=== PATIENT | female | born 1940 | race Caucasian/White ===

== ENCOUNTER 2017-04-29 10:05 | Outpatient (CLI) ==
[2017-04-29 12:19] VITALS: BMI 46.2
== END 2017-04-29 10:06 | disposition home or self-care (01) ==
LOC: DIETCN 10:05
PROVIDERS: ATTEND Internal Medicine
DX: E66.9 Obesity, unspecified (principal)

== ENCOUNTER 2017-06-05 13:04 | Outpatient (CLI) ==
[2012-08-29 07:05] VITALS: TEMP 97.6
--- NOTE | 2017-06-06 11:53 | MAMMO ---
EXAM: Bilateral digital screening mammogram (2-D and 3-D) History: Screening Comparison: Bilateral mammogram 07/25/2015 Findings: MLO and CC views of bilateral breasts demonstrate scattered fibroglandular breast parenchy ma. CAD was reviewed by the radiologist. Tomosynthesis was performed. There are no dominant masses , no suspicious microcalcifications and no architectural distortions Impression: Stable negative mammogram. Recommend followup routine screening mammography in 1 year. BIRADS 1
== END 2017-06-05 13:05 | disposition home or self-care (01) ==
LOC: RAD 13:04
PROVIDERS: ATTEND Internal Medicine
DX: Z12.31 Encounter for screening mammogram for malignant neoplasm of breast (principal)
CPT/HCPCS: 77067

== ENCOUNTER 2017-07-09 12:57 | Outpatient (CLI) | payer OTHER ==
[2012-08-29 07:05] VITALS: TEMP 97.6
--- NOTE | 2017-07-09 13:23 | DI ---
EXAM: Left shoulder three view HISTORY: Fall COMPARISON: 11/14/2013 FINDINGS: No fracture or dislocation. Mild osteoarthritis acromioclavicular and glenohumeral joints No focal soft tissue abnormality. Visualized portion of the chest is normal. IMPERSSION: 1. No fracture or dislocation. 2. Mild osteoarthritis
== END 2017-07-09 12:58 | disposition home or self-care (01) ==
LOC: RAD 12:57
PROVIDERS: ATTEND Emergency Medicine
DX: S49.92XA Unspecified injury of left shoulder and upper arm, initial encounter (principal); W19.XXXA Unspecified fall, initial encounter

== ENCOUNTER 2018-02-11 08:37 | Outpatient (CLI) ==
[2012-08-29 07:05] VITALS: TEMP 97.6
--- NOTE | 2018-02-11 09:28 | MAMMO ---
EXAM: Left digital diagnostic mammogram (2-D and 3-D) History: Left breast pain and palpable abnormality. Comparison: Bilateral mammogram 06/05/2017 Findings: MLO and CC views of bilateral breasts demonstrate scattered fibroglandular breast parenchy ma. CAD was reviewed by the radiologist. Tomosynthesis was performed. There are no dominant masses , no suspicious microcalcifications and no architectural distortions Impression: Although no mammographic abnormalities are identified to correlate with the left breast pain and palpable area, recommend further evaluation with left breast ultrasound. BIRADS 0
--- NOTE | 2018-02-11 09:38 | US ---
EXAM: Left breast ultrasound. History: Left breast pain. Comparison: Left diagnostic mammogram 02/11/2018 Technique: Multiple sonographic images through the left breast were obtained. Color duplex Doppler was used to interrogate vascular flow. Findings: No masses, cysts or fluid collections identified. Impression: No sonographic abnormalities. Recommend return to routine screening mammography schedule . BIRADS 2
== END 2018-02-11 08:38 | disposition home or self-care (01) ==
LOC: RAD 08:37
PROVIDERS: ATTEND Internal Medicine
DX: N64.4 Mastodynia (principal); E03.9 Hypothyroidism, unspecified
CPT/HCPCS: 36415; 84443

== ENCOUNTER 2021-08-18 13:26 | Inpatient (IN) ==
[2021-08-18] MEDS ORDERED: CATAPRES PO ONE (13:51)
--- NOTE | 2021-08-18 13:54 | ED.PDOC ---
General ED Provider: Dr. GRACIELA PERALES MD Chief Complaint: Arrhythmia Stated Complaint: mild palpitations today at home, no syncope, no chest pain, resolved now, not short of breath, no fever, no NV Time Seen by Provider: 08/18/21 13:41 Mode of Arrival: Wheelchair Information Source: Patient Primary Care Provider: SEAN PUGA Nursing and Triage Documentation Reviewed and Agree: Yes Does patient meet sepsis criteria?: No System Inflammatory Response Syndrome: Not Applicable Sepsis Protocol: For patient's 13 years and over: Temp is 96.8 and below OR 101 and greater Pulse >90 BPM Resp >20/minute Acutely Altered Mental Status Are patient's symptoms suggestive of a new infection, such as: -Pneumonia -Skin, Soft Tissue -Endocarditis -UTI -Bone, Joint Infection -Implantable Device -Acute Abdominal Infection -Wound Infection -Meningitis -Blood Stream Catheter Infection -Unknown Review of Systems Review Of Systems Constitutional: Denies Fever or Malaise Eyes: Denies Vision change Ears, Nose, Mouth, Throat: Denies Throat pain Respiratory: Denies Short of air Cardiac: Reports Palpitations; Denies Chest pain or Lightheadedness GI: Denies Abdominal pain or Vomiting : Denies Flank pain Musculoskeletal: Denies Back pain or Neck pain Skin: Denies Rash or Cyanosis Neurological: Denies Cognitive dysfunction or Headache All Other Systems: Other [facility] Medical History (Updated 08/18/21 @ 15:15 by GRACIELA PERALES MD) GERD (gastroesophageal reflux disease) HTN (hypertension) Hypercholesteremia Social History Smoking and tobacco status: Never smoker History of recent travel: Yes (de[place]) Surgical History (Updated 08/18/21 @ 13:40 by ARVIND PATIÑO RN) H/O tubal ligation Hx of appendectomy Hx of cholecystectomy Total knee replacement status Female Reproductive History Menstrual Hx Hysterectomy: No Hx Tubal Ligation: Yes Physical Exam Physical Exam Appearance: Reports Well-appearing Ill-appearing: None Pain Distress: None Eyes: Reports PATO, EOMI and Conjunctiva clear ENT: Reports Oropharynx normal Neck: Supple Respiratory: Reports Airway patent, Breath sounds clear and Breath sounds equal Cardiovascular: Reports RRR GI/: Reports Soft and Nontender Musculoskeletal: Reports No edema Skin: Reports Warm and Dry Neurological: Reports Alert Psychiatric: Reports Affect appropriate Interpretation Radiology Interpretation Radiology Interpretation By: Radiologist Radiology Results: No acute changes Exam Interpreted: CXR EKG Interpretation Time of EKG #1: 15:14 Interpretation: atrial fib 92 no stemi Critical Care Note Critical Care Note Total Critical Care Time (mins): 0 Course Course Hematology/Chemistry: 08/18/21 14:10 08/18/21 14:10 Orders, Labs, Meds: Lab Review 08/18/21 08/18/21 08/18/21 14:10 14:10 14:10 WBC 6.01 RBC 4.62 Hgb 13.2 Hct 41.8 MCV 90.5 MCH 28.6 MCHC 31.6 L RDW Coeff of Sharon 14.9 H Plt Count 214 Immature Gran % (Auto) 0.5 Neut % (Auto) 59.9 Lymph % (Auto) 27.1 [place] % (Auto) 9.3 Eos % (Auto) 2.7 Baso % (Auto) 0.5 Neut # (Auto) 3.6 Lymph # (Auto) 1.6 [place] # (Auto) 0.6 Eos # (Auto) 0.2 Baso # (Auto) 0.0 Immature Gran # (Auto) 0.0 PT 10.7 INR 1.03 Sodium Potassium Chloride Carbon Dioxide Anion Gap BUN Creatinine Estimated GFR (MDRD) BUN/Creatinine Ratio Glucose Calcium Total Bilirubin AST ALT Alkaline Phosphatase Troponin I < 0.012 Total Protein Albumin Globulin Albumin/Globulin Ratio SARS-CoV-2 Ag (Rapid) 08/18/21 08/18/21 14:10 14:10 WBC RBC Hgb Hct MCV MCH MCHC RDW Coeff of Sharon Plt Count Immature Gran % (Auto) Neut % (Auto) Lymph % (Auto) [place] % (Auto) Eos % (Auto) Baso % (Auto) Neut # (Auto) Lymph # (Auto) [place] # (Auto) Eos # (Auto) Baso # (Auto) Immature Gran # (Auto) PT INR Sodium 138.1 Potassium 4.17 Chloride 101.7 Carbon Dioxide 26.7 Anion Gap 13.87 BUN 32.1 H Creatinine 1.19 Estimated GFR (MDRD) 43.00 BUN/Creatinine Ratio 26.97 Glucose 116.1 H Calcium 9.50 Total Bilirubin 0.56 AST 25.9 ALT 24.1 Alkaline Phosphatase 97.0 Troponin I Total Protein 7.37 Albumin 4.62 Globulin 2.75 Albumin/Globulin Ratio 1.68 SARS-CoV-2 Ag (Rapid) Negative Orders Category Date Time Status ADMIT PATIENT INPATIENT .TO MEDSURG (MONITORED BED) ADMISSION 08/18/21 15:08 Ordered EKG-(ED ONLY) Stat CARDIO 08/18/21 13:51 Completed EKG-(IP & OP ONLY) DAILY CARDIO 08/19/21 06:00 Ordered EKG-(IP & OP ONLY) DAILY CARDIO 08/20/21 06:00 Ordered NEBULIZER TREATMENT Routine CARDIO 08/18/21 15:13 Ordered ACTIVITY .BR with BRP CARE 08/18/21 15:08 Ordered INTAKE & OUTPUT Q8HR CARE 08/18/21 15:08 Ordered IP: INSERT SALINE LOCK ONCE CARE 08/18/21 15:08 Ordered TELEMETRY MONITORING TELE CARE 08/18/21 15:08 Ordered VITAL SIGNS Q8HR CARE 08/18/21 15:08 Ordered VTE PREVENTION .MEGHA On AM/Off PM CARE 08/18/21 15:08 Ordered CARDIAC DIET DIETARY 08/18/21 Dinner Ordered CBC W/ AUTO DIFF DAILY@0600 LAB 08/19/21 06:00 Ordered CBC W/ AUTO DIFF DAILY@0600 LAB 08/20/21 06:00 Ordered CBC W/ AUTO DIFF Stat LAB 08/18/21 14:10 Completed CMP [COMPREHENSIVE METABOLIC PANEL] Stat LAB 08/18/21 14:10 Completed COMPREHENSIVE METABOLIC PANEL DAILY@0600 LAB 08/19/21 06:00 Ordered COMPREHENSIVE METABOLIC PANEL DAILY@0600 LAB 08/20/21 06:00 Ordered COVID-19 ANTIGEN TEST Stat LAB 08/18/21 14:10 Completed PT WITH INR Stat LAB 08/18/21 14:10 Completed TROPONIN I Q8H LAB 08/18/21 21:15 Ordered TROPONIN I Q8H LAB 08/19/21 05:15 Ordered TROPONIN I Stat LAB 08/18/21 14:10 Completed Acetaminophen [Tylenol] MEDS 08/18/21 15:08 Ordered 650 mg PO Q4H PRN Amlodipine Besylate [Norvasc] MEDS 08/18/21 15:30 Ordered 5 mg PO QDAY Apixaban [Eliquis] MEDS 08/18/21 21:00 Ordered 5 mg PO BID Aspirin [Aspirin Chewable] MEDS 08/18/21 15:07 Stat 324 mg PO ONCE STA Aspirin [Aspirin EC] MEDS 08/18/21 15:30 Ordered 81 mg PO QDAY Carvedilol [Coreg] MEDS 08/18/21 17:30 Ordered 6.25 mg PO BIDBRS Cholecalciferol (Vitamin D3) [Vitamin D] MEDS 08/19/21 09:00 Ordered 1 tab PO DAILY Clonidine HCl [Catapres] MEDS 08/18/21 13:51 Discontinued 0.1 mg PO ONCE ONE Ipratropium/Albuterol Neb [Duoneb] MEDS 08/18/21 18:00 Ordered 3 ml NEB RTQ6H Levothyroxine Sodium [Synthroid] MEDS 08/19/21 09:00 Ordered 50 mcg PO DAILY Pantoprazole Sodium [Protonix] MEDS 08/18/21 17:00 Ordered 40 mg PO BIDWM Potassium Chloride [Micro-K Cap] MEDS 08/19/21 09:00 Ordered 10 meq PO DAILY Pravastatin Sodium [Pravachol] MEDS 08/18/21 21:00 Ordered 80 mg PO BEDTIME Sodium Chloride 0.9% [Sodium Chloride] 1,000 ml MEDS 08/18/21 15:30 Ordered IV 75 mls/hr calcium carbonate-vitamin D3 [Calcium 600 + D(3)] MEDS 08/19/21 09:00 Ordered 1 tab PO DAILY ferrous sulfate MEDS 08/18/21 21:00 Ordered 325 mg PO BID multivitamin [Daily Multi-Vitamin] MEDS 08/19/21 09:00 Ordered 1 tab PO DAILY RESUSCITATION STATUS Routine OTHERS 08/18/21 15:08 Ordered CHEST, 1V AP ONLY Stat RADS 08/18/21 13:51 Completed Medications Generic Name Dose Route Start Last Admin Trade Name Freq PRN Reason Stop Dose Admin Acetaminophen 650 mg 08/18/21 15:08 Acetaminophen 325 Mg Tablet PO Q4H PRN Mild Pain Apixaban 5 mg 08/18/21 21:00 Apixaban 5 Mg Tab PO BID TRACEE Sodium Chloride 1,000 mls @ 75 mls/hr 08/18/21 15:30 Sodium Chloride IV .[id number] TRACEE Discontinued Medications Generic Name Dose Route Start Last Admin Trade Name Freq PRN Reason Stop Dose Admin Aspirin 324 mg 08/18/21 15:07 Aspirin 81 Mg Tab.Chew PO 08/18/21 15:08 ONCE STA Clonidine 0.1 mg 08/18/21 13:51 08/18/21 14:07 Clonidine Hcl 0.1 Mg Tablet PO 08/18/21 13:52 0.1 mg ONCE ONE Administration Vital Signs: Temp Pulse Resp BP Pulse Ox 08/18/21 15:02 110/83 08/18/21 14:48 135/87 08/18/21 14:36 143/86 H 08/18/21 14:29 140/100 H 08/18/21 14:22 160/113 H 08/18/21 13:29 98.3 F 90 18 204/104 H 97 RICK Risk Score RICK Risk Score: Risk Score Odds of by 30D 0 0.1 (0.1-0.2) 1 0.3 (0.2-0.3) 2 0.4 (0.3-0.5) 3 0.7 (0.6-0.9) 4 1.2 (1.0-1.5) 5 2.2 (1.9-2.6) 6 3.0 (2.5-3.6) 7 4.8 (3.8-6.1) Discharge Plan Discharge Patient Disposition: ADMITTED INPATIENT Discharge Problem: Atrial fibrillation Prescriptions: No Action carvedilol 6.25 MG tablet 6.25 mg PO BIDBRS 0RF pravastatin 40 MG tablet 80 mg PO BEDTIME 0RF multivitamin [Daily Multi-Vitamin] 1 EACH tablet 1 tab PO DAILY 0RF calcium carbonate-vitamin D3 [Calcium 600 + D(3)] 1 EACH tablet 1 tab PO DAILY 0RF albuterol sulfate [ProAir HFA] 1 PUFF HFA aerosol inhaler 2 puff inhalation TID PRN (Reason: Asthma) 0RF levothyroxine [Synthroid] 50 MCG tablet 50 mcg PO DAILY 0RF cholecalciferol (vitamin D3) [Vitamin D3] 1,000 UNIT tablet 1 tab PO DAILY 0RF ferrous sulfate 325 MG tablet 325 mg PO BID Qty: 60 0RF potassium chloride 10 MEQ capsule, extended release 10 meq PO DAILY Qty: 30 0RF pantoprazole [Protonix] 40 MG tablet,delayed release (DR/EC) 40 mg PO BIDWM Qty: 60 0RF aspirin 81 mg tablet,delayed release (DR/EC) 81 mg PO QDAY 0RF amlodipine [Norvasc] 5 mg tablet 5 mg PO QDAY 0RF trospium 20 mg tablet 20 mg PO BID 0RF Rx Instructions: administer on an empty stomach amoxicillin 500 mg capsule 500 mg PO TID 10 Days Qty: 30 1RF Rx Instructions: Take TID x10 days ED Provider: GRACIELA PERALES Condition: Stable Physician Progress Note: []treatment and admit d/w Dr Puga
[2021-08-18 14:20] LABS: BASOPHILS % (AUTO) 0.5 % (0.0-3.0); EOSINOPHILS # (AUTO) 0.2 K/ul (0.0-0.7); EOSINOPHILS % (AUTO) 2.7 % (0.0-7.0); HEMATOCRIT 41.8 % (37.0-47.0); HEMOGLOBIN 13.2 g/dl (12.0-16.0); IMMATURE GRANULOCYTE % (AUTO) 0.5 % (0.0-5.0); LYMPHOCYTES # (AUTO) 1.6 K/uL (0.60-3.4); LYMPHOCYTES % (AUTO) 27.1 (10.0-50.0); MEAN CORPUSCULAR HEMOGLOBIN 28.6 pg (27.0-31.0); MEAN CORPUSCULAR HGB CONC 31.6 (31.8-35.4); MEAN CORPUSCULAR VOLUME 90.5 fl (81.0-99.0); MONOCYTES # (AUTO) 0.6 K/uL (0.4-2.0); MONOCYTES % (AUTO) 9.3 (0-10); NEUTROPHILS # (AUTO) 3.6 K/ul (2.0-6.9); NEUTROPHILS % (AUTO) 59.9 % (42.2-75.2); PLATELET COUNT 214 10^3/uL (140-440); RDW COEFFICIENT OF VARIATION 14.9 % (11.6-14.8); RED BLOOD COUNT 4.62 10^6/ul (4.20-5.40); WHITE BLOOD COUNT 6.01 K/ul (4.6-10.2)
--- NOTE | 2021-08-18 14:28 | DI ---
EXAM: Chest one view, frontal view only. HISTORY: Weakness. Decreased pulse oximetry reading. COMPARISON: 12/08/2015. FINDINGS: The heart size is enlarged. There is no pulmonary vascular congestion. The lungs are lionel ar. No pleural effusion or pneumothorax is seen. No acute osseous abnormality is identified. Clip in the left upper abdomen. IMPRESSION: Cardiomegaly.
[2021-08-18 14:39] LABS: PROTHROMBIN TIME 10.7 SEC (9.3-11.0)
[2021-08-18 14:52] LABS: ALANINE AMINOTRANSFERASE 24.1 U/L (0-35); ALBUMIN 4.62 g/dL (3.5-5.0); ASPARTATE AMINO TRANSFERASE 25.9 U/L (14-36); BILIRUBIN,TOTAL 0.56 mg/dL (0.2-1.3); BLOOD UREA NITROGEN 32.1 mg/dL (7-17); CALCIUM 9.5 mg/dL (8.4-10.2); CARBON DIOXIDE 26.7 mmol/L (22-30.0); CHLORIDE 101.7 mmol/L (98-107); CREATININE 1.19 mg/dL (0.60-1.30); GLUCOSE 116.1 mg/dL (74-106); POTASSIUM 4.17 mmol/L (3.5-5.1); SODIUM 138.1 mmol/L (134.5-145); TOTAL PROTEIN 7.37 g/dL (6.3-8.2)
[2021-08-18] MEDS ORDERED: ASPIRIN CHEWABLE PO STA (15:07)
[2021-08-18] MEDS ORDERED: TYLENOL PO PRN (15:08)
[2021-08-18 16:45] VITALS: BMI 44.1
[2021-08-18] MEDS ORDERED: PROTONIX PO SCH (17:00)
[2021-08-18] MEDS ORDERED: COREG PO SCH (17:30)
[2021-08-18] MEDS ORDERED: DUONEB NEB SCH (18:00)
[2021-08-18] MEDS: COREG PO SCH (18:09)
[2021-08-18] MEDS: SODIUM CHLORIDE 1,000 ML IV SCH (18:10)
[2021-08-18] MEDS: DUONEB NEB SCH (19:45)
[2021-08-18] MEDS: PRAVACHOL PO SCH (20:19)
[2021-08-18] MEDS: ELIQUIS PO SCH (20:20)
[2021-08-18] MEDS ORDERED: NON-FORMULARY MEDICATION (Ferrous Sulfate 325 MG tablet) PO SCH (21:00)
[2021-08-18] MEDS ORDERED: NORVASC PO SCH (21:00)
[2021-08-18] MEDS ORDERED: PRAVACHOL PO SCH (21:00)
[2021-08-18] MEDS: CARDIZEM PO SCH (21:47)
[2021-08-18] MEDS: TAMBOCOR PO SCH (21:47)
[2021-08-19 04:23] LABS: BASOPHILS % (AUTO) 0.5 % (0.0-3.0); EOSINOPHILS # (AUTO) 0.2 K/ul (0.0-0.7); EOSINOPHILS % (AUTO) 2.9 % (0.0-7.0); HEMATOCRIT 36.3 % (37.0-47.0); HEMOGLOBIN 11.5 g/dl (12.0-16.0); IMMATURE GRANULOCYTE % (AUTO) 0.4 % (0.0-5.0); LYMPHOCYTES # (AUTO) 1.7 K/uL (0.60-3.4); MEAN CORPUSCULAR HEMOGLOBIN 28.8 pg (27.0-31.0); MEAN CORPUSCULAR HGB CONC 31.7 (31.8-35.4); MEAN CORPUSCULAR VOLUME 90.8 fl (81.0-99.0); MONOCYTES # (AUTO) 0.6 K/uL (0.4-2.0); MONOCYTES % (AUTO) 10.3 (0-10); NEUTROPHILS # (AUTO) 3.1 K/ul (2.0-6.9); NEUTROPHILS % (AUTO) 55.9 % (42.2-75.2); PLATELET COUNT 164 10^3/uL (140-440); RDW COEFFICIENT OF VARIATION 14.9 % (11.6-14.8); WHITE BLOOD COUNT 5.54 K/ul (4.6-10.2)
[2021-08-19 04:35] LABS: ALANINE AMINOTRANSFERASE 20.5 U/L (0-35); ALBUMIN 3.81 g/dL (3.5-5.0); ALKALINE PHOSPHATASE 88.4 U/L (53-141); ASPARTATE AMINO TRANSFERASE 22.3 U/L (14-36); BILIRUBIN,TOTAL 0.37 mg/dL (0.2-1.3); CALCIUM 8.63 mg/dL (8.4-10.2); CARBON DIOXIDE 24.6 mmol/L (22-30.0); CHLORIDE 104.9 mmol/L (98-107); CREATININE 1.05 mg/dL (0.60-1.30); GLUCOSE 125.5 mg/dL (74-106); POTASSIUM 4.05 mmol/L (3.5-5.1); SODIUM 136.6 mmol/L (134.5-145); TOTAL PROTEIN 6.11 g/dL (6.3-8.2)
[2021-08-19] MEDS: DUONEB NEB SCH ×2 (04:45→10:18)
[2021-08-19 05:05] LABS: TROPONIN I < 0.012 ng/ml (0.0000-0.120)
[2021-08-19] MEDS: SYNTHROID PO SCH (05:59)
[2021-08-19] MEDS: PROTONIX PO SCH ×2 (05:59→17:02)
[2021-08-19] MEDS ORDERED: SYNTHROID PO SCH (06:00)
[2021-08-19] MEDS: SODIUM CHLORIDE 1,000 ML IV SCH ×2 (06:13→18:57)
[2021-08-19] MEDS: NON-FORMULARY MEDICATION (Vit C,E-Zn-Coppr-Lutein-Zeaxan [Preservision Areds-2] 250-90-40- PO SCH ×3 (07:30→20:59)
[2021-08-19] MEDS: COZAAR PO SCH (08:15)
[2021-08-19] MEDS: CARDIZEM PO SCH (08:15)
[2021-08-19] MEDS: TAMBOCOR PO SCH ×2 (08:16→21:00)
[2021-08-19] MEDS: HYDROCHLOROTHIAZIDE PO SCH (08:16)
[2021-08-19] MEDS: ELIQUIS PO SCH (08:16)
[2021-08-19] MEDS: VITAMIN D PO SCH (08:16)
[2021-08-19] MEDS: COREG PO SCH ×2 (08:16→17:01)
[2021-08-19] MEDS ORDERED: ASPIRIN EC PO SCH (09:00)
[2021-08-19] MEDS ORDERED: MICRO-K CAP PO SCH (09:00)
[2021-08-19] MEDS ORDERED: NON-FORMULARY MEDICATION (Calcium Carbonate-Vitamin D3 [Calcium 600 + D(3)] 1 EACH tablet) PO SCH (09:00)
[2021-08-19] MEDS ORDERED: NORVASC PO SCH (09:00)
[2021-08-19] MEDS ORDERED: MULTIVITAMIN TABLET PO SCH (09:00)
[2021-08-19] MEDS ORDERED: VITAMIN D PO SCH (09:00)
[2021-08-19] MEDS ORDERED: NON-FORMULARY MEDICATION (Multivitamin [Daily Multi-Vitamin] 1 EACH tablet) PO SCH (09:00)
[2021-08-19] MEDS ORDERED: DUONEB NEB PRN (10:22)
[2021-08-19] MEDS: NON-FORMULARY MEDICATION (Melatonin 10 mg Tablet) PO SCH (20:59)
[2021-08-19] MEDS: PRAVACHOL PO SCH (21:00)
[2021-08-20 05:32] LABS: BASOPHILS % (AUTO) 0.5 % (0.0-3.0); EOSINOPHILS # (AUTO) 0.2 K/ul (0.0-0.7); EOSINOPHILS % (AUTO) 2.7 % (0.0-7.0); HEMATOCRIT 36.1 % (37.0-47.0); HEMOGLOBIN 11.3 g/dl (12.0-16.0); IMMATURE GRANULOCYTE % (AUTO) 0.2 % (0.0-5.0); LYMPHOCYTES # (AUTO) 1.7 K/uL (0.60-3.4); LYMPHOCYTES % (AUTO) 28.4 (10.0-50.0); MEAN CORPUSCULAR HEMOGLOBIN 28.4 pg (27.0-31.0); MEAN CORPUSCULAR HGB CONC 31.3 (31.8-35.4); MEAN CORPUSCULAR VOLUME 90.7 fl (81.0-99.0); MONOCYTES # (AUTO) 0.5 K/uL (0.4-2.0); MONOCYTES % (AUTO) 8.8 (0-10); NEUTROPHILS # (AUTO) 3.6 K/ul (2.0-6.9); NEUTROPHILS % (AUTO) 59.4 % (42.2-75.2); PLATELET COUNT 160 10^3/uL (140-440); RDW COEFFICIENT OF VARIATION 14.8 % (11.6-14.8); RED BLOOD COUNT 3.98 10^6/ul (4.20-5.40); WHITE BLOOD COUNT 5.99 K/ul (4.6-10.2)
[2021-08-20] MEDS: PROTONIX PO SCH ×2 (05:38→17:45)
[2021-08-20] MEDS: SYNTHROID PO SCH (05:38)
[2021-08-20 05:47] LABS: ALANINE AMINOTRANSFERASE 20.2 U/L (0-35); ALBUMIN 3.91 g/dL (3.5-5.0); ALKALINE PHOSPHATASE 90.7 U/L (53-141); ASPARTATE AMINO TRANSFERASE 20.5 U/L (14-36); BILIRUBIN,TOTAL 0.37 mg/dL (0.2-1.3); BLOOD UREA NITROGEN 27.7 mg/dL (7-17); CALCIUM 8.83 mg/dL (8.4-10.2); CARBON DIOXIDE 24.7 mmol/L (22-30.0); CHLORIDE 107.4 mmol/L (98-107); CREATININE 1.11 mg/dL (0.60-1.30); GLUCOSE 119.8 mg/dL (74-106); POTASSIUM 4.1 mmol/L (3.5-5.1); SODIUM 137.7 mmol/L (134.5-145); TOTAL PROTEIN 6.25 g/dL (6.3-8.2)
[2021-08-20] MEDS: HYDROCHLOROTHIAZIDE PO SCH (09:11)
[2021-08-20] MEDS: COREG PO SCH ×2 (09:11→17:45)
[2021-08-20] MEDS: TAMBOCOR PO SCH ×2 (09:11→20:36)
[2021-08-20] MEDS: COZAAR PO SCH (09:11)
[2021-08-20] MEDS: NON-FORMULARY MEDICATION (Vit C,E-Zn-Coppr-Lutein-Zeaxan [Preservision Areds-2] 250-90-40- PO SCH ×2 (09:12→20:37)
[2021-08-20] MEDS: VITAMIN D PO SCH (09:12)
--- NOTE | 2021-08-20 09:50 | PCM.PROG ---
Attending Provider: ATTENDING PROVIDER: Dr. SEAN GROVER This patient is seen with Yuly Dixon, Nurse Practitioner. DATE OF SERVICE: 08/20/21 SUBJECTIVE: This 80 year old /WHITE F was hospitalized 08/18/21. Hgb stable at 11.3 today. held Eliquis. We will discontinue IV fluids. The patient is in and out of fibrillation. Rate has been controlled. The patient is feeling fine. REVIEW OF SYSTEMS: CONSTITUTIONAL: No night sweats. No fatigue, malaise, lethargy. No fever or chills. Weakness. HEENT: Eyes: No visual changes. No eye pain. No eye discharge. ENT: No runny nose. No epistaxis. No sinus pain. No odynophagia. No congestion. RESPIRATORY: No cough, no congestion. No hemoptysis. No shortness of breath. CARDIOVASCULAR: No angina symptoms. No CHF symptoms. No atypical chest pain for CAD. Palpitations. No orthopnea.. GASTROINTESTINAL: No abdominal pain. No nausea or vomiting. No diarrhea or constipation. No hematemesis. No hematochezia. GENITOURINARY: No urgency. No frequency. No dysuria. No hematuria. No obstructive symptoms. No discharge. No pain. No significant abnormal bleeding. MUSCULOSKELETAL: No musculoskeletal pain; no joint swelling. NEUROLOGICAL: Awake, alert, oriented to time, place and person. No headache. No neck pain. No syncope. No seizures. No dizziness. PSYCHIATRIC: Not anxious. No depression. No suicidal thoughts. No homicidal thoughts. SKIN: No rash. No lesions. No wounds. ENDOCRINE: No unexplained weight loss. No weight gain. HEMATOLOGIC/LYMPHATIC: No anemia. No purpura. No petechiae. No prolonged or excessive bleeding. No palpable lymph nodes. PHYSICAL EXAMINATION: GENERAL: The patient is awake, alert and oriented, sitting in bed in no distress. VITAL SIGNS: Temperature 97.8 F, Pulse 78, Respiratory Rate 20, BP 137/83, Pulse Ox 96% HEENT: Head normocephalic, atraumatic. Eyes: Extraocular muscles are intact. Pupils are equal, round and reactive to light and accommodation. Ears: No lesions. Nose appeared normal. Throat: No exudate or erythema. NECK: Supple. No JVD, no carotid bruit. No lymphadenopathy or thyromegaly. LUNGS: Clear to auscultation. Percussion note normal. Chest symmetrical. HEART: S1, S2, no S3. No murmurs. Irregular heart rate. No cyanosis or clubbing. No ascites. Pulses: Dorsalis pedis and posterior tibial pulses +1 to +2 both sides. ABDOMEN: Soft. Non-tender. Bowel sounds active. No CVA tenderness. No mass felt. EXTREMITIES: No edema. Full range of motion of all extremities, equal. NEUROLOGIC: No focal deficit. Cranial nerves II through XII are grossly intact. No headache. No double vision. SKIN: Not dry. Intact. Turgor-normal. LYMPHATIC: No palpable lymph nodes/no lymphedema. MUSCULOSKELETAL: Normal joints with no swelling. Muscle tone is normal. LAB REVIEW: 08/20/21 04:50 08/20/21 04:50 08/20/21 04:50: Sodium 137.7, Potassium 4.10, Chloride 107.4 H, Carbon Dioxide 24.7, Anion Gap 9.70, BUN 27.7 H, Creatinine 1.11, Estimated GFR (MDRD) 47.00, BUN/Creatinine Ratio 24.95, Glucose 119.8 H, Calcium 8.83, Total Bilirubin 0.37, AST 20.5, ALT 20.2, Alkaline Phosphatase 90.7, Total Protein 6.25 L, Albumin 3.91, Globulin 2.34, Albumin/Globulin Ratio 1.67 08/20/21 04:50: WBC 5.99, RBC 3.98 L, Hgb 11.3 L, Hct 36.1 L, MCV 90.7, MCH 28.4, MCHC 31.3 L, RDW Coeff of Sharon 14.8, Plt Count 160, Immature Gran % (Auto) 0.2, Neut % (Auto) 59.4, Lymph % (Auto) 28.4, [place] % (Auto) 8.8, Eos % (Auto) 2.7, Baso % (Auto) 0.5, Neut # (Auto) 3.6, Lymph # (Auto) 1.7, [place] # (Auto) 0.5, Eos # (Auto) 0.2, Baso # (Auto) 0.0, Immature Gran # (Auto) 0.0 ASSESSMENT: Please see below. 1. New onset atrial fibrillation 2. Chronic anemia 3. Obesity 4. Hypertension PLAN: 1. Discussed history of GI bleed with patient. Echo results and risk of blood thinner versus benefit. 2. Discontinue IV fluids. Plan and coordination of the patient's care discussed in the presence of Compensation Consultant and nurse. SCRIBED BY: Ning MANSFIELD scribed while in presence of service performed by Dr. Grover/Yuly Dixon APRN on 08/20/21 (0623)
[2021-08-20] MEDS: SODIUM CHLORIDE 1,000 ML IV SCH (10:18)
[2021-08-20] MEDS ORDERED: ELIQUIS PO STA (11:24)
--- NOTE | 2021-08-20 13:32 | PN ---
DATE OF SERVICE: 08/18/21 SUBJECTIVE: The patient was seen and examined in the room where her was. When I was examining her who is in the hospital she mentioned that she has been having palpitations and her pulse her been 110-130 per minute for past 2-3 days and clinically she seemed to be in atrial fibrillation. I advised her to go to the emergency room where she examined by the ER attending. She was in atrial fibrillation which seems to be new onset.The patient's physical examination otherwise was unremarkable. Blood pressure was borderline high. She was given Norvasc. Blood pressure was brought down. The patient's EKG revealed atrial fibrillation with rapid ventricular response. The rest of the physical exam was negative and also the lab test were unremarkable. PLAN: 1. Hospital the patient was new onset atrial fibrillation with palpitations. 2. Telemetry 3. Echo 4. The patient is going to be started on Eliquis 5mg twice a day 5. Atrial fibrillation complications discussed. 6. The patient is CHADS II VASC SCORE OF 4 7. She will be started on Flecainide 8. We may use either Beta capri or calcium channel capri like Cardizem to control her rate. 9. The patient's education started about atrial fibrillation complications. 10. Eliquis side effects with GI bleed and intracranial bleed discussed. TIME SPENT: More than 30 minutes. Plan and coordination of the patient's care discussed in the presence of nurse. BING
--- NOTE | 2021-08-20 14:26 | PN ---
DATE OF SERVICE: 08/19/21 SUBJECTIVE: 80 year old white female hospitalized with atrial fibrillation with somewhat rapid ventricular response. The patient's condition has improved. She has no palpitations, no symptoms of CHF or coronary insufficiency. REVIEW OF SYSTEMS: CONSTITUTIONAL: No night sweats. No fatigue, malaise, lethargy. No fever or chills. HEENT: Eyes: No visual changes. No eye pain. No eye discharge. ENT: No runny nose. No epistaxis. No sinus pain. No sore throat. No odynophagia. No congestion. RESPIRATORY: No cough, no congestion. No hemoptysis. No shortness of breath. CARDIOVASCULAR: No angina symptoms. No CHF symptoms. No atypical chest pain for CAD. No palpitations. No PND. No orthopnea. GASTROINTESTINAL: No abdominal pain. No nausea or vomiting. No diarrhea or constipation. No hematemesis. No hematochezia. GENITOURINARY: No urgency. No frequency. No dysuria. No hematuria. No obstructive symptoms. No discharge. No pain. No significant abnormal bleeding. MUSCULOSKELETAL: No musculoskeletal pain; no joint swelling. NEUROLOGICAL: No headache. No neck pain. No syncope. No seizures. No dizziness. PSYCHIATRIC: Not anxious. No depression. No suicidal thoughts. No homicidal thoughts. SKIN: No rash. No lesions. No wounds. ENDOCRINE: No unexplained weight loss. No weight gain. HEMATOLOGIC/LYMPHATIC: No anemia. No purpura. No petechiae. No prolonged or excessive bleeding. No palpable lymph nodes. PHYSICAL EXAMINATION: VITAL SIGNS: Temperature 97.5, pulse 70, respiratory rate 16, blood pressure 122/70 and pulse ox 97%. HEENT: Head normocephalic, atraumatic. Eyes: Extraocular muscles are intact. Pupils are equal, round and reactive to light and accommodation. Ears: No lesions. Nose appeared normal. Throat: No exudate or erythema. NECK: Supple. No JVD, no carotid bruit. No lymphadenopathy or thyromegaly. LUNGS: Decreased breath sounds but clear to auscultation. Percussion note normal. Chest symmetrical. HEART: S1, S2, no S3. No murmurs. No cyanosis or clubbing. No ascites. Pulses: Dorsalis pedis and posterior tibial pulses +1 to +2 bilaterally. ABDOMEN: Soft. Nontender. Bowel sounds active. No CVA tenderness. No mass felt. EXTREMITIES: No edema. Full range of motion of all extremities, equal. NEUROLOGIC: No focal deficit. Cranial nerves II through XII are grossly intact. No headache. No double vision. SKIN: Not dry. Intact. Turgor - normal. LYMPHATIC: No palpable lymph nodes/no lymphedema. MUSCULOSKELETAL: Normal joints with no swelling. Muscle tone is normal. LABS: Hgb 11.5, hct 36, WBC 5,500 normal differential, creatinine 1, BUN 29, potassium 4. EKG which showed atrial fibrillation with rapid ventricular response on day 1, today the patient's rate is acceptable. She is already on Flecainide ASSESSMENT: 1. Atrial fibrillation, new onset 2. Hypertension 3. Dyslipidemia 4. Hypothyroidism PLAN: 1. Continue Carvedilol and Cardizem 2. Norvasc was discontinued 3. Eliquis was put on hold because of the patient's history of having GI bleed after she had surgery done on by Dr. Granados and she was on Aspirin. This was 4- 5 years ago. She is not on any Nonsteroids anti-inflammatory. She is on Pantoprazole 40mg twice a day. Eliquis is going to be held this morning. We will evaluate her history. I don't think should be any problem because the patient had a reason to have peptic ulcer disease with aspirin post surgery and then she bleed, that was 5 years ago. The patient has been on Protonix 40mg twice a day 4. The patient had an echo cardiogram done which showed dilated LV cavity and LA cavity 5.7cm normal valves. PROGNOSIS: POOR, getting into a sinus rhythm is not that good. Again, discussed side effects of Eliquis in detail including intracranial and GI bleed. Advised not to take any nonsteroids anti-inflammatory. CONDITION: Stable. TIME SPENT: More than 30 minutes. Plan and coordination of the patient's care discussed in the presence of nurse. ADDENDUM: I did not see any "knots" anywhere in the ventricle or antrum MTDD
[2021-08-20] MEDS: PRAVACHOL PO SCH (20:36)
[2021-08-20] MEDS: NON-FORMULARY MEDICATION (Melatonin 10 mg Tablet) PO SCH (20:37)
[2021-08-20] MEDS: ELIQUIS PO SCH (20:37)
[2021-08-20] MEDS ORDERED: ENTRESTO 24 MG-26 MG TABLET PO SCH (21:00)
[2021-08-21] MEDS: PROTONIX PO SCH ×2 (05:35→17:02)
[2021-08-21] MEDS: SYNTHROID PO SCH (05:35)
[2021-08-21 05:44] LABS: BASOPHILS % (AUTO) 0.3 % (0.0-3.0); EOSINOPHILS # (AUTO) 0.1 K/ul (0.0-0.7); EOSINOPHILS % (AUTO) 2.4 % (0.0-7.0); HEMATOCRIT 36.8 % (37.0-47.0); HEMOGLOBIN 11.5 g/dl (12.0-16.0); IMMATURE GRANULOCYTE % (AUTO) 0.3 % (0.0-5.0); LYMPHOCYTES # (AUTO) 1.4 K/uL (0.60-3.4); LYMPHOCYTES % (AUTO) 24.2 (10.0-50.0); MEAN CORPUSCULAR HEMOGLOBIN 28.4 pg (27.0-31.0); MEAN CORPUSCULAR HGB CONC 31.3 (31.8-35.4); MEAN CORPUSCULAR VOLUME 90.9 fl (81.0-99.0); MONOCYTES # (AUTO) 0.6 K/uL (0.4-2.0); MONOCYTES % (AUTO) 9.4 (0-10); NEUTROPHILS # (AUTO) 3.8 K/ul (2.0-6.9); NEUTROPHILS % (AUTO) 63.4 % (42.2-75.2); PLATELET COUNT 154 10^3/uL (140-440); RDW COEFFICIENT OF VARIATION 14.7 % (11.6-14.8); RED BLOOD COUNT 4.05 10^6/ul (4.20-5.40); WHITE BLOOD COUNT 5.95 K/ul (4.6-10.2)
[2021-08-21 05:58] LABS: ALBUMIN 3.9 g/dL (3.5-5.0); ALKALINE PHOSPHATASE 87.8 U/L (53-141); ASPARTATE AMINO TRANSFERASE 22.7 U/L (14-36); BILIRUBIN,TOTAL 0.45 mg/dL (0.2-1.3); BLOOD UREA NITROGEN 25.5 mg/dL (7-17); CALCIUM 8.89 mg/dL (8.4-10.2); CARBON DIOXIDE 25.1 mmol/L (22-30.0); CHLORIDE 105.8 mmol/L (98-107); CREATININE 1.03 mg/dL (0.60-1.30); GLUCOSE 123.2 mg/dL (74-106); POTASSIUM 3.95 mmol/L (3.5-5.1); SODIUM 138.1 mmol/L (134.5-145); TOTAL PROTEIN 6.13 g/dL (6.3-8.2)
[2021-08-21] MEDS: HYDROCHLOROTHIAZIDE PO SCH (08:43)
[2021-08-21] MEDS: VITAMIN D PO SCH (08:43)
[2021-08-21] MEDS: NON-FORMULARY MEDICATION (Vit C,E-Zn-Coppr-Lutein-Zeaxan [Preservision Areds-2] 250-90-40- PO SCH ×2 (08:43→20:25)
[2021-08-21] MEDS: TAMBOCOR PO SCH ×2 (08:44→20:27)
[2021-08-21] MEDS: COREG PO SCH ×2 (08:44→17:02)
[2021-08-21] MEDS: ELIQUIS PO SCH ×2 (08:44→20:24)
[2021-08-21] MEDS: ENTRESTO 24 MG-26 MG TABLET PO SCH ×2 (08:44→20:26)
--- NOTE | 2021-08-21 11:12 | ECHO2D ---
Date of Exam: 08/19/2021 Ordering Physician: DR. GROVER Room #: 103 Reason for Echo: SHORTNESS OF BREATH M-Mode Normal Adult Results LV Dimensions Normal Adult Results AoV Opening excursions >1.6 >1.6 LVEDD-base- 3.5-5.8 5.9 Ao root dimensions 2.0-3.7 3.0 LVESD-base- 3.1-4.6 L. Atrium dimensions 1.9-3.8 5.7 Post. Wall thickness 0.8-1.1 1.1 IV septum (thickness) 0.7-1.2 1.3 Post. Wall excursion 0.72-1.3 NORMAL Septal motion NORMAL Systolic motion R. Ventricular cavity 1.5-2.0 NORMAL LVEF 60% 46% Paradoxical septal wall motion NORMAL 2-D : MARKEDLY ENLARGED LEFT ATRIAL CAVITY, ENLARGED LEFT VENTRICLE CAVITY, NORMAL LEFT VENTRICULAR CONTRACTILITY, NORMAL VALVES, NO EFFUSION, NO THROMBUS M-MODE: MV: NORMAL AV: NORMAL TV: NORMAL PV: CHAMBER SIZE: ENLARGED LEFT ATRIAL/ LEFT VENTRICLE CAVITIES WALL MOTION: NORMAL PERICARDIUM: NORMAL INTERPRETATION: 1. LEFT VENTRICULAR HYPERTROPHY MARKEDLY ENLARGED LEFT ATRIAL CAVITY 5.7cm 2. ENLARGED LEFT VENTRICLE CAVITY 3. SEPTAL/ INFERIOR POSTERIOR WALL CONTRACTILITY NORMAL BUT EJECTION FRACTION 46% BECAUSE OF DILATED LEFT VENTRICLE SIZE 4. NORMAL VALVES MTDD
[2021-08-21] MEDS ORDERED: COLACE PO PRN (19:04)
[2021-08-21] MEDS: NON-FORMULARY MEDICATION (Melatonin 10 mg Tablet) PO SCH (20:25)
[2021-08-21] MEDS: PRAVACHOL PO SCH (20:27)
[2021-08-22 05:14] LABS: BASOPHILS % (AUTO) 0.5 % (0.0-3.0); EOSINOPHILS # (AUTO) 0.1 K/ul (0.0-0.7); EOSINOPHILS % (AUTO) 1.9 % (0.0-7.0); HEMATOCRIT 38.1 % (37.0-47.0); HEMOGLOBIN 11.9 g/dl (12.0-16.0); IMMATURE GRANULOCYTE % (AUTO) 0.5 % (0.0-5.0); LYMPHOCYTES # (AUTO) 1.7 K/uL (0.60-3.4); LYMPHOCYTES % (AUTO) 25.8 (10.0-50.0); MEAN CORPUSCULAR HEMOGLOBIN 28.2 pg (27.0-31.0); MEAN CORPUSCULAR HGB CONC 31.2 (31.8-35.4); MEAN CORPUSCULAR VOLUME 90.3 fl (81.0-99.0); MONOCYTES # (AUTO) 0.6 K/uL (0.4-2.0); MONOCYTES % (AUTO) 9.2 (0-10); NEUTROPHILS % (AUTO) 62.1 % (42.2-75.2); PLATELET COUNT 168 10^3/uL (140-440); RDW COEFFICIENT OF VARIATION 14.7 % (11.6-14.8); RED BLOOD COUNT 4.22 10^6/ul (4.20-5.40); WHITE BLOOD COUNT 6.39 K/ul (4.6-10.2)
[2021-08-22 05:20] VITALS: BP 134/87; TEMP 97.5
[2021-08-22 05:28] LABS: ALANINE AMINOTRANSFERASE 25.4 U/L (0-35); ALBUMIN 3.92 g/dL (3.5-5.0); ALKALINE PHOSPHATASE 93.6 U/L (53-141); ASPARTATE AMINO TRANSFERASE 24.3 U/L (14-36); BILIRUBIN,TOTAL 0.49 mg/dL (0.2-1.3); CALCIUM 8.8 mg/dL (8.4-10.2); CARBON DIOXIDE 26.4 mmol/L (22-30.0); CHLORIDE 105.3 mmol/L (98-107); CREATININE 1.06 mg/dL (0.60-1.30); GLUCOSE 123.9 mg/dL (74-106); POTASSIUM 3.82 mmol/L (3.5-5.1); TOTAL PROTEIN 6.17 g/dL (6.3-8.2)
[2021-08-22] MEDS: SYNTHROID PO SCH (05:46)
[2021-08-22] MEDS: PROTONIX PO SCH (05:46)
[2021-08-22] MEDS: NON-FORMULARY MEDICATION (Vit C,E-Zn-Coppr-Lutein-Zeaxan [Preservision Areds-2] 250-90-40- PO SCH (08:56)
[2021-08-22] MEDS: VITAMIN D PO SCH (08:57)
[2021-08-22] MEDS: HYDROCHLOROTHIAZIDE PO SCH (08:57)
[2021-08-22] MEDS: TAMBOCOR PO SCH (08:57)
[2021-08-22] MEDS: ENTRESTO 24 MG-26 MG TABLET PO SCH (08:57)
[2021-08-22] MEDS: COREG PO SCH (08:58)
[2021-08-22] MEDS: ELIQUIS PO SCH (08:58)
--- NOTE | 2021-08-22 09:17 | DS ---
DATE OF SERVICE: 08/22/21 FINAL DIAGNOSIS: 1. New onset atrial fibrillation 2. Chronic anemia 3. Hypertension 4. Obesity 5. 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 DISCHARGE INSTRUCTIONS: Discharge Home. Avoid all NSAIDS. Be sure that you tell all medical providers and dentists that you are on Eliquis. Watch for usual bruising or prolonged bleeding. Avoid aspirin, Motrin or Aleve. Pay attention to ther over the counter medications that may contain these. Scheduled for followup appointment with Dr. Puga on September 03 at 11:15am. MEDICATIONS AT DISCHARGE: Pravastatin 80mg PO bedtime Synthroid 50mcg PO daily Vitamin D 3 1 tablet PO daily Protonix 40mg PO BID Trospium 20mg PO BID PreserVision AREDS one capsule PO BID Hydrochlorothiazide 12.5mg PO daily Melatonin 10mg PO bedtime NEW PRESCRIPTIONS: ENTRESTO 24-26MG TAKE ONE TABLET TWICE A DAY (START TONIGHT) ELIQUIS 5MG TAKE ONE TABLET BY MOUTH TWICE A DAY (START TONIGHT) COREG 12.5MG TAKE ONE TABLET BY MOUTH TWICE A DAY (START TONIGHT) TAMBACOR 100MG TAKE ONE TABLET BY MOUTH TWICE A DAY (START TONIGHT) DISCONTINUED MEDICATIONS: Cardizem Losartan Norvasc DIET INSTRUCTIONS: Regular diet ACTIVITY: As tolerated with rest periods when needed. Avoid any strenuous activity HOSPITAL COURSE: 80 year old white female who was sent to ER after visiting her who is in the hospital, found to be in atrial fibrillation which is new onset. Initially on Cardizem and Coreg. Cardizem was discontinue and Coreg was increased. She was started on Eliquis 5mg BID. She does have history of GI bleed after NSAID use due to AVM. Since hospital hgb has improved. Dr. Puga formed echo which showed enlarged LA and LV cavities. Started on Flecainide still in persisted atrial fibrillation. Ejection fraction around 40%. Discontinued Losartan and started on Entresto. He has tolerated this as well. Will discharge home. She was told to avoid NSAIDS. Risk of bleeding with Eliquis discussed. Atrial fibrillation and it's complications discussed. Medications were reviewed. She will followup in the office next week. TIME SPENT: More than 60 minutes. [facility]
--- NOTE | 2021-08-22 09:17 | PCM.PROG ---
Attending Provider: ATTENDING PROVIDER: Dr. SEAN GROVER This patient is seen with Yuly Dixon, Nurse Practitioner. DATE OF SERVICE: 08/22/21 SUBJECTIVE: This 80 year old /WHITE F was hospitalized 08/18/21. She is feeling well up and about in the room, eating well. Hgb is stable, actually increasing after starting Eliquis. Blood pressure and Potassium are fine after started Entresto. Rate has been controlled. Ready to be discharged. REVIEW OF SYSTEMS: CONSTITUTIONAL: No night sweats. No fatigue, malaise, lethargy. No fever or chills. Weakness. HEENT: Eyes: No visual changes. No eye pain. No eye discharge. ENT: No runny nose. No epistaxis. No sinus pain. No odynophagia. No congestion. RESPIRATORY: No cough, no congestion. No hemoptysis. No shortness of breath. CARDIOVASCULAR: No angina symptoms. No CHF symptoms. No atypical chest pain for CAD. Palpitations. No orthopnea.. GASTROINTESTINAL: No abdominal pain. No nausea or vomiting. No diarrhea or constipation. No hematemesis. No hematochezia. GENITOURINARY: No urgency. No frequency. No dysuria. No hematuria. No obstructive symptoms. No discharge. No pain. No significant abnormal bleeding. MUSCULOSKELETAL: No musculoskeletal pain; no joint swelling. NEUROLOGICAL: Awake, alert, oriented to time, place and person. No headache. No neck pain. No syncope. No seizures. No dizziness. PSYCHIATRIC: Not anxious. No depression. No suicidal thoughts. No homicidal thoughts. SKIN: No rash. No lesions. No wounds. ENDOCRINE: No unexplained weight loss. No weight gain. HEMATOLOGIC/LYMPHATIC: No anemia. No purpura. No petechiae. No prolonged or excessive bleeding. No palpable lymph nodes. PHYSICAL EXAMINATION: GENERAL: The patient is awake, alert and oriented, sitting in chair in no distress. VITAL SIGNS: Temperature 97.5 F, Pulse 87, Respiratory Rate 18, BP 134/87, Pulse Ox 97% HEENT: Head normocephalic, atraumatic. Eyes: Extraocular muscles are intact. Pupils are equal, round and reactive to light and accommodation. Ears: No lesions. Nose appeared normal. Throat: No exudate or erythema. NECK: Supple. No JVD, no carotid bruit. No lymphadenopathy or thyromegaly. LUNGS: Diminished breath sounds. Clear to auscultation. Percussion note normal. Chest symmetrical. HEART: S1, S2, no S3. No murmurs. Irregular heart rate. No cyanosis or clubbing. No ascites. Pulses: Dorsalis pedis and posterior tibial pulses +1 to +2 both sides. ABDOMEN: Soft. Non-tender. Bowel sounds active. No CVA tenderness. No mass felt. EXTREMITIES: No edema. Full range of motion of all extremities, equal. NEUROLOGIC: No focal deficit. Cranial nerves II through XII are grossly intact. No headache. No double vision. SKIN: Not dry. Intact. Turgor-normal. LYMPHATIC: No palpable lymph nodes/no lymphedema. MUSCULOSKELETAL: Normal joints with no swelling. Muscle tone is normal. LAB REVIEW: 08/22/21 04:40 08/22/21 04:40 08/22/21 04:40: Sodium 138.0, Potassium 3.82, Chloride 105.3, Carbon Dioxide 26.4, Anion Gap 10.12, BUN 26.0 H, Creatinine 1.06, Estimated GFR (MDRD) 50.00, BUN/Creatinine Ratio 24.52, Glucose 123.9 H, Calcium 8.80, Total Bilirubin 0.49, AST 24.3, ALT 25.4, Alkaline Phosphatase 93.6, Total Protein 6.17 L, Albumin 3.92, Globulin 2.25, Albumin/Globulin Ratio 1.74 08/22/21 04:40: WBC 6.39, RBC 4.22, Hgb 11.9 L, Hct 38.1, MCV 90.3, MCH 28.2, MCHC 31.2 L, RDW Coeff of [place] 14.7, Plt Count 168, Immature Gran % (Auto) 0.5, Neut % (Auto) 62.1, Lymph % (Auto) 25.8, [place] % (Auto) 9.2, Eos % (Auto) 1.9, Baso % (Auto) 0.5, Neut # (Auto) 4.0, Lymph # (Auto) 1.7, [place] # (Auto) 0.6, Eos # (Auto) 0.1, Baso # (Auto) 0.0, Immature Gran # (Auto) 0.0 ASSESSMENT: Please see below. 1. New onset atrial fibrillation 2. Chronic anemia 3. Hypertension 4. Obesity 5. 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 PLAN: 1. Discharge home 2. Continue Entresto and Eliquis 3. Risk of bleeding with Eliquis discussed and to avoid NSAIDS. Plan and coordination of the patient's care discussed in the presence of Mobile Application Architect and nurse. SCRIBED BY: Ning MANSFIELD scribed while in presence of service performed by Dr. Grover/Yuly Dixon APRN on 08/22/21 ([id number])
== END 2021-08-22 14:22 | disposition home or self-care (01) | DRG 309 ==
LOC: ED 13:26 → MEDSURG A 15:50
PROVIDERS: ADMIT Internal Medicine; ATTEND Internal Medicine
DX: Z79.899 Other long term (current) drug therapy; Z20.822 Contact with and (suspected) exposure to COVID-19; E78.5 Hyperlipidemia, unspecified; I10 Essential (primary) hypertension; Z68.41 Body mass index [BMI] 40.0-44.9, adult; I48.91 Unspecified atrial fibrillation; E66.9 Obesity, unspecified; I42.2 Other hypertrophic cardiomyopathy; Z51.81 Encounter for therapeutic drug level monitoring; E03.9 Hypothyroidism, unspecified; Z79.01 Long term (current) use of anticoagulants; Z87.19 Personal history of other diseases of the digestive system

== ENCOUNTER 2021-10-11 12:55 | Inpatient (IN) ==
[2021-10-11] MEDS ORDERED: NITROSTAT SL PRN (13:02)
[2021-10-11] MEDS ORDERED: ATROPINE SULFATE PFS IVP PRN (13:02)
[2021-10-11] MEDS ORDERED: TYLENOL PO PRN (13:02)
[2021-10-11] MEDS ORDERED: IMODIUM PO PRN (13:05)
--- NOTE | 2021-10-11 13:52 | DI ---
EXAM: Frontal view of the chest. HISTORY: Shortness of air. COMPARISON: Chest radiograph 09/23/2021. FINDINGS: Normal heart size. Calcific atherosclerosis of the aorta. Previously demonstrated bibasilar opacities have resolved. No acute consolidation. No visible effusion or pneumothorax. Surgical screws at the right humeral head. Multilevel spinal degenerative changes IMPRESSION: 1. No acute process demonstrated. 2. Calcific atherosclerosis of the aorta.
[2021-10-11 14:05] VITALS: BMI 44.6
[2021-10-11] MEDS: SODIUM CHLORIDE 1,000 ML IV SCH (15:22)
[2021-10-11] MEDS: K-DUR PO SCH (17:09)
[2021-10-11] MEDS: PROTONIX PO SCH (17:09)
[2021-10-11 17:20] LABS: BILIRUBIN,URINE Negative (NEGATIVE); CLARITY,URINE Clear (CLEAR); COLOR,URINE Yellow (YELLOW); GLUCOSE, URINE (UA) Negative (NEGATIVE); KETONES,URINE Negative (NEGATIVE); LEUKOCYTE ESTERASE ,URINE Negative (NEGATIVE); NITRITE,URINE Negative (NEGATIVE); PH,URINE 5.5 (5-9); PROTEIN,URINE Negative (NEGATIVE); URINE, BLOOD Negative (NEGATIVE); UROBILINOGEN,URINE 0.2 (0.2)
[2021-10-11] MEDS: COREG PO SCH (17:36)
[2021-10-11] MEDS: PRAVACHOL PO SCH (20:55)
[2021-10-11] MEDS: ELIQUIS PO SCH (20:55)
[2021-10-11] MEDS: ENTRESTO 24 MG-26 MG TABLET PO SCH (20:55)
[2021-10-11] MEDS: XANAX PO PRN (21:06)
[2021-10-12 04:52] LABS: BASOPHILS % (AUTO) 0.6 % (0.0-3.0); EOSINOPHILS # (AUTO) 0.2 K/ul (0.0-0.7); EOSINOPHILS % (AUTO) 3.4 % (0.0-7.0); HEMATOCRIT 38.6 % (37.0-47.0); HEMOGLOBIN 12.3 g/dl (12.0-16.0); IMMATURE GRANULOCYTE % (AUTO) 0.2 % (0.0-5.0); LYMPHOCYTES # (AUTO) 1.5 K/uL (0.60-3.4); LYMPHOCYTES % (AUTO) 29.9 (10.0-50.0); MEAN CORPUSCULAR HEMOGLOBIN 28.3 pg (27.0-31.0); MEAN CORPUSCULAR HGB CONC 31.9 (31.8-35.4); MEAN CORPUSCULAR VOLUME 88.9 fl (81.0-99.0); MONOCYTES # (AUTO) 0.6 K/uL (0.4-2.0); MONOCYTES % (AUTO) 12.7 (0-10); NEUTROPHILS # (AUTO) 2.7 K/ul (2.0-6.9); NEUTROPHILS % (AUTO) 53.2 % (42.2-75.2); PLATELET COUNT 161 10^3/uL (140-440); RDW COEFFICIENT OF VARIATION 14.7 % (11.6-14.8); RED BLOOD COUNT 4.34 10^6/ul (4.20-5.40); WHITE BLOOD COUNT 4.98 K/ul (4.6-10.2)
[2021-10-12 05:06] LABS: ALANINE AMINOTRANSFERASE 21.9 U/L (0-35); ALBUMIN 3.69 g/dL (3.5-5.0); ALKALINE PHOSPHATASE 90.8 U/L (53-141); ASPARTATE AMINO TRANSFERASE 23.7 U/L (14-36); BILIRUBIN,TOTAL 0.38 mg/dL (0.2-1.3); BLOOD UREA NITROGEN 25.2 mg/dL (7-17); CALCIUM 8.98 mg/dL (8.4-10.2); CARBON DIOXIDE 26.2 mmol/L (22-30.0); CHLORIDE 101.1 mmol/L (98-107); CREATININE 1.25 mg/dL (0.60-1.30); GLUCOSE 138.7 mg/dL (74-106); POTASSIUM 4.52 mmol/L (3.5-5.1); SODIUM 137.3 mmol/L (134.5-145); TOTAL PROTEIN 6.31 g/dL (6.3-8.2)
[2021-10-12] MEDS: SYNTHROID PO SCH (05:34)
[2021-10-12] MEDS: PROTONIX PO SCH ×2 (05:34→17:01)
[2021-10-12] MEDS: LASIX TAB PO SCH (05:34)
[2021-10-12] MEDS: ELIQUIS PO SCH ×2 (09:01→20:54)
[2021-10-12] MEDS: COREG PO SCH ×2 (09:02→17:01)
[2021-10-12] MEDS: SODIUM CHLORIDE 1,000 ML IV SCH (09:02)
[2021-10-12] MEDS: ENTRESTO 24 MG-26 MG TABLET PO SCH ×2 (09:02→20:54)
[2021-10-12] MEDS: K-DUR PO SCH ×2 (09:06→09:09)
--- NOTE | 2021-10-12 09:23 | PCM.PROG ---
Attending Provider: ATTENDING PROVIDER: Dr. SEAN GROVER DATE OF SERVICE: 10/12/21 SUBJECTIVE: This 80 year old /WHITE F was hospitalized 10/11/21 with renal azotemia, dehydration and diarrhea. The patient's condition is improving slowly. Gastroenteritis seems to have resolved. No vomiting and diarrhea is subsiding. Telemetry strips examined showed atrial fibrillation with varying ventricular re sponse. REVIEW OF SYSTEMS: CONSTITUTIONAL: No night sweats. No fatigue, malaise, lethargy. No fever or chills. HEENT: Eyes: No visual changes. No eye pain. No eye discharge. ENT: No runny nose. No epistaxis. No sinus pain. No odynophagia. No congestion. RESPIRATORY: No cough, no congestion. No hemoptysis. Mild shortness of breath on exertion. CARDIOVASCULAR: No angina symptoms. No CHF symptoms. No atypical chest pain for CAD. No palpitations. No orthopnea.. GASTROINTESTINAL: No abdominal pain. No nausea or vomiting. No diarrhea or constipation. No hematemesis. No hematochezia. GENITOURINARY: No urgency. No frequency. No dysuria. No hematuria. No obstructive symptoms. No discharge. No pain. No significant abnormal bleeding. MUSCULOSKELETAL: No musculoskeletal pain; no joint swelling. NEUROLOGICAL: Awake, alert, oriented to time, place and person. No headache. No neck pain. No syncope. No seizures. No dizziness. PSYCHIATRIC: Not anxious. No depression. No suicidal thoughts. No homicidal thoughts. SKIN: No rash. No lesions. No wounds. ENDOCRINE: No unexplained weight loss. No weight gain. HEMATOLOGIC/LYMPHATIC: No anemia. No purpura. No petechiae. No prolonged or excessive bleeding. No palpable lymph nodes. PHYSICAL EXAMINATION: GENERAL: The patient is awake, alert and oriented, sitting in chair in no distress. VITAL SIGNS: Temperature 98.0 F, Pulse 86, Respiratory Rate 18, BP 106/66, Pulse Ox 95% HEENT: Head normocephalic, atraumatic. Eyes: Extraocular muscles are intact. Pupils are equal, round and reactive to light and accommodation. Ears: No lesions. Nose appeared normal. Throat: No exudate or erythema. NECK: Supple. No JVD, no carotid bruit. No lymphadenopathy or thyromegaly. LUNGS: Clear to auscultation. Percussion note normal. Chest symmetrical. HEART: S1, S2, no S3. No murmurs. No cyanosis or clubbing. No ascites. Pulses: Dorsalis pedis and posterior tibial pulses +1 to +2 both sides. ABDOMEN: Soft. Non-tender. Bowel sounds active. No CVA tenderness. No mass felt. EXTREMITIES: No edema. Full range of motion of all extremities, equal. NEUROLOGIC: No focal deficit. Cranial nerves II through XII are grossly intact. No headache, no double vision or headache. SKIN: Warm and dry. Intact. Turgor-normal. LYMPHATIC: No palpable lymph nodes/no lymphedema. MUSCULOSKELETAL: Normal joints with no swelling. Muscle tone is normal. LAB REVIEW: 10/12/21 04:36 10/12/21 04:36 10/12/21 04:36: Sodium 137.3, Potassium 4.52, Chloride 101.1, Carbon Dioxide 26.2, Anion Gap 14.52, BUN 25.2 H, Creatinine 1.25, Estimated GFR (MDRD) 41.00, BUN/Creatinine Ratio 20.16, Glucose 138.7 H, Calcium 8.98, Total Bilirubin 0.38, AST 23.7, ALT 21.9, Alkaline Phosphatase 90.8, Total Protein 6.31, Albumin 3.69, Globulin 2.62, Albumin/Globulin Ratio 1.40 10/12/21 04:36: WBC 4.98, RBC 4.34, Hgb 12.3, Hct 38.6, MCV 88.9, MCH 28.3, MCHC 31.9, RDW Coeff of [place] 14.7, Plt Count 161, Immature Gran % (Auto) 0.2, Neut % (Auto) 53.2, Lymph % (Auto) 29.9, [place] % (Auto) 12.7 H, Eos % (Auto) 3.4, Baso % (Auto) 0.6, Neut # (Auto) 2.7, Lymph # (Auto) 1.5, [place] # (Auto) 0.6, Eos # (Auto) 0.2, Baso # (Auto) 0.0, Immature Gran # (Auto) 0.0 10/11/21 17:14: Urine Color Yellow, Urine Clarity Clear, Urine pH 5.5, Ur Specific [place] 1.010, Urine Protein Negative, Urine Glucose (UA) Negative, Urine Ketones Negative, Urine Blood Negative, Urine Nitrite Negative, Urine Bilirubin Negative, Urine Urobilinogen 0.2, Ur Leukocyte Esterase Negative ASSESSMENT: Please see below. 1. Renal azotemia improving on IV fluids, encourage the patient to eat. 2. Gastroenteritis 3. Atrial fibrillation, stable 4. CHF stable PLAN: 1. Continue IV fluids 2. Continue to encourage the patient to eat and drink 3. Monitor blood pressure, goal systolic over 100. Plan and coordination of the patient's care discussed in the presence of Scientific Programmer and nurse. SCRIBED BY: Ning MANSFIELD scribed while in presence of service performed by Dr. SEAN GROVER on 10/12/21 ([id number])
--- NOTE | 2021-10-12 10:20 | HP ---
DATE OF SERVICE: 10/11/21 REASON FOR HOSPITALIZATION/HISTORY OF PRESENT ILLNESS: This is a 80 year old white who has been in our facility for swing bed doing PT and OT after a hospitalization with atrial fibrillation with RVR, acute CHF and pulmonary edema. While she was admitted for swing bed she did progress well with therapy however she has developed some gastritis and increase in renal function. She has been having persistent diarrhea while has not resolved with Imodium. She is going to be admitted to acute care for IV fluids, check U/A, GI panel. She is being admitted to acute for diarrhea, generalized weakness, increased renal function and hypotension. PAST MEDICAL HISTORY: Morbid obesity Hypertension Dyslipidemia Hypothyroidism GERD Atrial fibrillation with RVR Sleep apnea Systolic CHF Chronic kidney disease stage II Recent acute kidney injury PAST SURGICAL HISTORY: Tubal ligation Appendectomy Cholecystectomy Bilateral total knee replacement REVIEW OF SYSTEMS: CONSTITUTIONAL: No night sweats. Fatigue. No fever or chills. Weakness. HEENT: Eyes: No visual changes. No eye pain. No eye discharge. ENT: No runny nose. No epistaxis. No sinus pain. No sore throat. No odynophagia. No ear pain. No congestion. Pallor RESPIRATORY: No cough, no congestion. No hemoptysis. No shortness of breath. CARDIOVASCULAR: No angina symptoms. No CHF symptoms. No atypical chest pain for CAD. No palpitations. No PND. No orthopnea. GASTROINTESTINAL: No abdominal pain. No nausea or vomiting. Diarrhea. No hematemesis. No hematochezia. GENITOURINARY: No urgency. No frequency. No dysuria. No hematuria. No obstructive symptoms. No discharge. No pain. No significant abnormal bleeding. MUSCULOSKELETAL: No musculoskeletal pain. No joint swelling. No arthritis. NEUROLOGICAL: No headache. No neck pain. No syncope. No seizures. No dizziness. PSYCHIATRIC: Not anxious. No depression. No suicidal thoughts. No homicidal thoughts. SKIN: No rash. No lesions. No wounds. ENDOCRINE: No unexplained weight loss. No weight gain. HEMATOLOGIC/LYMPHATIC: No anemia. No purpura. No petechiae. No prolonged or excessive bleeding. No palpable lymph nodes. PERSONAL/FAMILY/SOCIAL HISTORY: She is recently . She lives at home alone. Nonsmoker. No alcohol or illicit drug use. MEDICATIONS: Pravastatin 80mg at bedtime Protonix 40mg PO BID Eliquis 5mg PO BID Synthroid 50mcg PO QDAC Coreg 6.25mg PO BID with meal Xanax 0.5mg PO Q 8 HOURS PRN Lasix 40mg pO daily Sacubitril-valsartan 49-51 one tablet PO Q 12 hours Aspirin 81mg PO daily Multi Mineral one tablet PO daily ALLERGIES: No known allergies PHYSICAL EXAMINATION: VITAL SIGNS: Temperature 97.4, heart rate 82, blood pressure 87/57, oxygen saturation 98% on room air. HEENT: Head normocephalic, atraumatic. Eyes: Extraocular muscles are intact. Pupils are equal, round and reactive to light and accommodation. Ears: No lesions. Nose appeared normal. Throat: No exudate or erythema. Pallor. NECK: Supple. No JVD, no carotid bruit. No lymphadenopathy or thyromegaly. LUNGS: Diminished breath sounds. Clear to auscultation. Percussion note normal. Chest symmetrical. HEART: S1, S2, no S3. No murmur. Irregular heart rate. No cyanosis or clubbing. No ascites. Pulses: Dorsalis pedis and posterior tibial pulses +1 to +2 bilaterally. ABDOMEN: Soft. Nontender. Bowel sounds active. No CVA tenderness. No mass felt. EXTREMITIES: No edema. Full range of motion of all extremities, equal. NEUROLOGIC: No focal deficit. Cranial nerves II through XII are grossly intact. No headache, no double vision or headache. SKIN: Not dry. Intact. Turgor - normal. LYMPHATIC: No palpable lymph nodes/no lymphedema. MUSCULOSKELETAL: Normal joints with no swelling. Muscle tone is normal. LABS: Hgb 12.4, hct 39, Plt count 165, BUN up to 24.9,creatinine 1.23, glucose 133. ASSESSMENT: 1. Renal azotemia 2. Generalized weakness 3. Diarrhea 4. Hypotension PLAN: 1. We will admit 2. Routine telemetry orders 3. No cardiac markers 4. CBC and CMP 5. U/A 6. Chest x-ray 7. Normal saline IV at 50cc an hour 8. Slow IV rehydration due to recent history of CHF and atrial fibrillation. 9. Chest x-ray 10. U/A 11. Lomotil 2.5mg PO TID PRN for diarrhea 12. GI panel by PCR 13. Regular diet 14. Continue home medications 15. Hold blood pressure medications with systolic less than 100 16. Will follow closely. TIME SPENT: More than 70 minutes. MTDD
[2021-10-12] MEDS: PRAVACHOL PO SCH (20:54)
[2021-10-12] MEDS: XANAX PO PRN (21:08)
[2021-10-13 04:56] LABS: BASOPHILS % (AUTO) 0.7 % (0.0-3.0); EOSINOPHILS # (AUTO) 0.2 K/ul (0.0-0.7); EOSINOPHILS % (AUTO) 3.4 % (0.0-7.0); HEMATOCRIT 41.4 % (37.0-47.0); HEMOGLOBIN 12.6 g/dl (12.0-16.0); IMMATURE GRANULOCYTE % (AUTO) 0.2 % (0.0-5.0); LYMPHOCYTES # (AUTO) 2.1 K/uL (0.60-3.4); LYMPHOCYTES % (AUTO) 34.9 (10.0-50.0); MEAN CORPUSCULAR HEMOGLOBIN 27.7 pg (27.0-31.0); MEAN CORPUSCULAR HGB CONC 30.4 (31.8-35.4); MONOCYTES # (AUTO) 0.7 K/uL (0.4-2.0); MONOCYTES % (AUTO) 11.5 (0-10); NEUTROPHILS # (AUTO) 2.9 K/ul (2.0-6.9); NEUTROPHILS % (AUTO) 49.3 % (42.2-75.2); PLATELET COUNT 189 10^3/uL (140-440); RDW COEFFICIENT OF VARIATION 14.7 % (11.6-14.8); RED BLOOD COUNT 4.55 10^6/ul (4.20-5.40); WHITE BLOOD COUNT 5.91 K/ul (4.6-10.2)
[2021-10-13 05:07] LABS: ALANINE AMINOTRANSFERASE 21.2 U/L (0-35); ALBUMIN 3.94 g/dL (3.5-5.0); ALKALINE PHOSPHATASE 95.9 U/L (53-141); ASPARTATE AMINO TRANSFERASE 27.6 U/L (14-36); BILIRUBIN,TOTAL 0.43 mg/dL (0.2-1.3); BLOOD UREA NITROGEN 25.3 mg/dL (7-17); CALCIUM 9.05 mg/dL (8.4-10.2); CARBON DIOXIDE 28.5 mmol/L (22-30.0); CHLORIDE 101.2 mmol/L (98-107); CREATININE 1.28 mg/dL (0.60-1.30); GLUCOSE 132.1 mg/dL (74-106); POTASSIUM 4.57 mmol/L (3.5-5.1); SODIUM 137.4 mmol/L (134.5-145); TOTAL PROTEIN 6.64 g/dL (6.3-8.2)
[2021-10-13] MEDS: PROTONIX PO SCH ×2 (05:38→16:18)
[2021-10-13] MEDS: SYNTHROID PO SCH (05:38)
[2021-10-13] MEDS: LASIX TAB PO SCH (05:38)
[2021-10-13] MEDS: SODIUM CHLORIDE 1,000 ML IV SCH (05:39)
[2021-10-13] MEDS: ENTRESTO 24 MG-26 MG TABLET PO SCH ×2 (08:33→20:05)
[2021-10-13] MEDS: COREG PO SCH ×2 (08:34→16:18)
[2021-10-13] MEDS: ELIQUIS PO SCH ×2 (08:34→20:05)
[2021-10-13] MEDS: K-DUR PO SCH (08:34)
[2021-10-13] MEDS: XANAX PO PRN (20:05)
[2021-10-13] MEDS: PRAVACHOL PO SCH (20:05)
[2021-10-14] MEDS: SODIUM CHLORIDE 1,000 ML IV SCH ×2 (00:56→18:16)
[2021-10-14 04:54] LABS: BASOPHILS # (AUTO) 0.1 K/uL (0-0.2); BASOPHILS % (AUTO) 0.8 % (0.0-3.0); EOSINOPHILS # (AUTO) 0.2 K/ul (0.0-0.7); EOSINOPHILS % (AUTO) 3.8 % (0.0-7.0); HEMATOCRIT 39.1 % (37.0-47.0); HEMOGLOBIN 12.3 g/dl (12.0-16.0); IMMATURE GRANULOCYTE % (AUTO) 0.3 % (0.0-5.0); LYMPHOCYTES % (AUTO) 32.3 (10.0-50.0); MEAN CORPUSCULAR HEMOGLOBIN 28.2 pg (27.0-31.0); MEAN CORPUSCULAR HGB CONC 31.5 (31.8-35.4); MEAN CORPUSCULAR VOLUME 89.7 fl (81.0-99.0); MONOCYTES # (AUTO) 0.6 K/uL (0.4-2.0); MONOCYTES % (AUTO) 9.7 (0-10); NEUTROPHILS # (AUTO) 3.2 K/ul (2.0-6.9); NEUTROPHILS % (AUTO) 53.1 % (42.2-75.2); PLATELET COUNT 176 10^3/uL (140-440); RDW COEFFICIENT OF VARIATION 14.6 % (11.6-14.8); RED BLOOD COUNT 4.36 10^6/ul (4.20-5.40); WHITE BLOOD COUNT 6.06 K/ul (4.6-10.2)
[2021-10-14 05:07] LABS: ALANINE AMINOTRANSFERASE 20.4 U/L (0-35); ALBUMIN 3.84 g/dL (3.5-5.0); ASPARTATE AMINO TRANSFERASE 24.5 U/L (14-36); BILIRUBIN,TOTAL 0.4 mg/dL (0.2-1.3); BLOOD UREA NITROGEN 21.9 mg/dL (7-17); CALCIUM 8.92 mg/dL (8.4-10.2); CARBON DIOXIDE 25.3 mmol/L (22-30.0); CHLORIDE 103.8 mmol/L (98-107); CREATININE 1.16 mg/dL (0.60-1.30); GLUCOSE 131.9 mg/dL (74-106); POTASSIUM 4.5 mmol/L (3.5-5.1); SODIUM 138.2 mmol/L (134.5-145); TOTAL PROTEIN 6.5 g/dL (6.3-8.2)
[2021-10-14] MEDS: LASIX TAB PO SCH (05:33)
[2021-10-14] MEDS: PROTONIX PO SCH ×2 (05:33→17:04)
[2021-10-14] MEDS: SYNTHROID PO SCH (05:33)
[2021-10-14] MEDS: K-DUR PO SCH (08:18)
[2021-10-14] MEDS: ELIQUIS PO SCH ×2 (08:18→20:42)
[2021-10-14] MEDS: ENTRESTO 24 MG-26 MG TABLET PO SCH ×2 (08:18→20:40)
[2021-10-14] MEDS: COREG PO SCH ×2 (08:18→17:04)
[2021-10-14] MEDS: PRAVACHOL PO SCH (20:41)
[2021-10-14] MEDS: XANAX PO PRN (20:41)
[2021-10-15] MEDS: LASIX TAB PO SCH (05:57)
[2021-10-15] MEDS: SYNTHROID PO SCH (05:57)
[2021-10-15] MEDS: PROTONIX PO SCH (05:57)
--- NOTE | 2021-10-15 08:48 | PCM.PROG ---
Attending Provider: ATTENDING PROVIDER: Dr. SEAN GROVER This patient is seen with Yuly Dixon, Nurse Practitioner. DATE OF SERVICE: 10/15/21 SUBJECTIVE: This 80 year old /WHITE F was hospitalized 10/11/21. The patient is doing well. Renal function has improved. No diarrhea. Potassium is stable. Will discontinue IV fluids. Discharge home today. Did have episode of hypotension likely due to being sedentary. REVIEW OF SYSTEMS: CONSTITUTIONAL: No night sweats. Fatigue. No fever or chills. HEENT: Eyes: No visual changes. No eye pain. No eye discharge. ENT: No runny nose. No epistaxis. No sinus pain. No odynophagia. No congestion. RESPIRATORY: No cough, no congestion. No hemoptysis. No shortness of breath. CARDIOVASCULAR: No angina symptoms. No CHF symptoms. No atypical chest pain for CAD. No palpitations. No orthopnea.. GASTROINTESTINAL: No abdominal pain. No nausea or vomiting. No diarrhea or constipation. No hematemesis. No hematochezia. GENITOURINARY: No urgency. No frequency. No dysuria. No hematuria. No obstructive symptoms. No discharge. No pain. No significant abnormal bleeding. MUSCULOSKELETAL: No musculoskeletal pain; no joint swelling. NEUROLOGICAL: Awake, alert, oriented to time, place and person. No headache. No neck pain. No syncope. No seizures. No dizziness. PSYCHIATRIC: Not anxious. No depression. No suicidal thoughts. No homicidal thoughts. SKIN: No rash. No lesions. No wounds. ENDOCRINE: No unexplained weight loss. No weight gain. HEMATOLOGIC/LYMPHATIC: No anemia. No purpura. No petechiae. No prolonged or excessive bleeding. No palpable lymph nodes. PHYSICAL EXAMINATION: GENERAL: The patient is awake, alert and oriented, sitting in bed in no distress. VITAL SIGNS: Temperature 97.1 F, Pulse 80, Respiratory Rate 20, BP 111/66, Pulse Ox 95% HEENT: Head normocephalic, atraumatic. Eyes: Extraocular muscles are intact. Pupils are equal, round and reactive to light and accommodation. Ears: No lesions. Nose appeared normal. Throat: No exudate or erythema. NECK: Supple. No JVD, no carotid bruit. No lymphadenopathy or thyromegaly. LUNGS: Diminished breath sounds. Clear to auscultation. Percussion note normal. Chest symmetrical. HEART: S1, S2, no S3. No murmurs. No cyanosis or clubbing. No ascites. Pulses: Dorsalis pedis and posterior tibial pulses +1 to +2 both sides. ABDOMEN: Soft. Non-tender. Bowel sounds active. No CVA tenderness. No mass felt. EXTREMITIES: No edema. Full range of motion of all extremities, equal. NEUROLOGIC: No focal deficit. Cranial nerves II through XII are grossly intact. No headache. No double vision. SKIN: Not dry. Intact. Turgor-normal. LYMPHATIC: No palpable lymph nodes/no lymphedema. MUSCULOSKELETAL: Normal joints with no swelling. Muscle tone is normal. LAB REVIEW: 10/14/21 04:45 10/14/21 04:45 ASSESSMENT: Please see below. 1. Renal azotemia 2. Acute gastritis 3. Generalized weakness 4. Atrial fibrillation 5. Hypotension PLAN: 1. Discharge home 2. The patient would benefit from Home Health PT/OT and nursing 3. Will followup in the office next week 4. Medications reviewed. Plan and coordination of the patient's care discussed in the presence of Precipitation Equipment Tender and nurse. SCRIBED BY: Ning MANSFIELD scribed while in presence of service performed by Dr. Grover/Yuly Dixon APRN on 10/15/21 ([id number])
--- NOTE | 2021-10-15 08:48 | DS ---
DATE OF SERVICE: 10/15/21 FINAL DIAGNOSIS: 1. Renal azotemia 2. Acute gastritis 3. Generalized weakness 4. Atrial fibrillation 5. Hypotension DISCHARGE INSTRUCTIONS: Discharge home today with [facility]. Continue all same medications as prior admission. Followup with Dr. Puga/Yuly Dixon NP/Yuko Baltazar NP on September at 11:45. have followup with Dr. Castro/Cora Cadte NP on October 24 at 10:30am. [facility] will contact upon discharge for continued therapy. [facility] has been contacted to come assess. They will be in contact. MEDICATIONS AT DISCHARGE: Pravastatin 80mg PO bedtime Protonix 40mg PO BID Eliquis 5mg PO BID Synthroid 50mcg PO Q DAC Coreg 6.25mg PO BID with meal Xanax 0.5mg PO Q 8 HOURS PRN Lasix 40mg PO daily Sacubitril-valsartan 49-51mg one tablet PO Q 12 hours Multi Minerals one tablet PO daily NEW PRESCRIPTIONS: POTASSIUM 10 MEQ: TAKE 1 TIME DAILY DISCONTINUED MEDICATIONS: STOP: DO NOT TAKE ASPIRIN DIET INSTRUCTIONS: Resume as tolerated with limited salt intake ACTIVITY: Resume as tolerated HOSPITAL COURSE: 80 year old white female who had been admitted to swing bed was than admitted to [facility] for increase in renal function and acute gastritis. She experienced some hypotension and required IV fluids and supplemental Potassium. Over the course of the past several day symptoms have improved. Renal function has improved. No diarrhea. Blood pressure is stable. The patient will be discharge home. [facility] for PT/OT and nursing the patient would greatly benefit. We will have her followup in the office next week. TIME SPENT: More than 60 minutes. BING
[2021-10-15] MEDS: COREG PO SCH (09:14)
[2021-10-15] MEDS: ELIQUIS PO SCH (09:15)
[2021-10-15] MEDS: ENTRESTO 24 MG-26 MG TABLET PO SCH (09:15)
[2021-10-15] MEDS: K-DUR PO SCH (09:15)
--- NOTE | 2021-10-15 10:33 | PN ---
DATE OF SERVICE: 10/11/21 SUBJECTIVE: The patient was seen and examined with the Nurse Practitioner. The patient is going to be hospitalized with Renal azotemia. She has acute gastroenteritis. In the swing bed was progressing well. She has been weak. History and Physical and new orders were given. TIME SPENT: More than 30 minutes. Plan and coordination of the patient's care discussed in the presence of nurse. BING
[2021-10-15] MEDS: SODIUM CHLORIDE 1,000 ML IV SCH (12:42)
[2021-10-15 13:47] VITALS: BP 138/75; TEMP 97.3
--- NOTE | 2021-10-16 13:46 | PN ---
DATE OF SERVICE: 10/15/21 SUBJECTIVE: The patient was seen and examined with Nurse Practitioner. Condition is stable. She is up and about. No gastroenteritis. No PND. No orthopnea. She is up and about. Condition is stable. The patient is going to be discharged home. CHF education carried out. TIME SPENT: More than 30 minutes. Plan and coordination of the patient's care discussed in the presence of nurse. BING
--- NOTE | 2021-10-16 13:47 | PN ---
ADMISSION DAY: Level 5 REST OF THEM: Intermediate FINAL DAY: D as in discharge MTDD
--- NOTE | 2021-10-16 13:58 | PN ---
DATE OF SERVICE: 10/14/21 SUBJECTIVE: 80 year old white female hospitalized with renal azotemia and acute gastroenteritis with history of diarrhea. She is in the swing bed and later one switched to acute care hospitalization because of the mentioned. The patient was mildly dehydrated. She was put on IV fluids. She is feeling a lot better. Hydration status has improved. She is up and about. Stools are formed. No diarrhea noted. The appetite has improved. Slept well last night. Appetite has improved. REVIEW OF SYSTEMS: CONSTITUTIONAL: No night sweats. No fatigue, malaise, lethargy. No fever or chills. HEENT: Eyes: No visual changes. No eye pain. No eye discharge. ENT: No runny nose. No epistaxis. No sinus pain. No sore throat. No odynophagia. No congestion. RESPIRATORY: No cough, no congestion. No hemoptysis. No shortness of breath. CARDIOVASCULAR: No angina symptoms. No CHF symptoms. No atypical chest pain for CAD. No palpitations. No PND. No orthopnea. GASTROINTESTINAL: No abdominal pain. No nausea or vomiting. No diarrhea or constipation. No hematemesis. No hematochezia. GENITOURINARY: No urgency. No frequency. No dysuria. No hematuria. No obstructive symptoms. No discharge. No pain. No significant abnormal bleeding. MUSCULOSKELETAL: No musculoskeletal pain; no joint swelling. NEUROLOGICAL: No headache. No neck pain. No syncope. No seizures. No dizziness. PSYCHIATRIC: Not anxious. No depression. No suicidal thoughts. No homicidal thoughts. SKIN: No rash. No lesions. No wounds. ENDOCRINE: No unexplained weight loss. No weight gain. HEMATOLOGIC/LYMPHATIC: No anemia. No purpura. No petechiae. No prolonged or excessive bleeding. No palpable lymph nodes. PHYSICAL EXAMINATION: VITAL SIGNS: Temperature 97.1, pulse 76, respiratory rate 18, blood pressure 122/68 and pulse ox 96%. HEENT: Head normocephalic, atraumatic. Eyes: Extraocular muscles are intact. Pupils are equal, round and reactive to light and accommodation. Ears: No lesions. Nose appeared normal. Throat: No exudate or erythema. NECK: Supple. No JVD, no carotid bruit. No lymphadenopathy or thyromegaly. LUNGS: Clear to auscultation. Percussion note normal. Chest symmetrical. HEART: S1, S2, no S3. No murmurs. No cyanosis or clubbing. No ascites. Pulses: Dorsalis pedis and posterior tibial pulses +1 to +2 bilaterally. ABDOMEN: Soft. Nontender. Bowel sounds active. No CVA tenderness. No mass felt. EXTREMITIES: No edema. Full range of motion of all extremities, equal. NEUROLOGIC: No focal deficit. Cranial nerves II through XII are grossly intact. No headache. No double vision. SKIN: Not dry. Intact. Turgor - better LYMPHATIC: No palpable lymph nodes/no lymphedema. MUSCULOSKELETAL: Normal joints with no swelling. Muscle tone is normal. LABS: Hgb 12.3, hct 39, WBC 6,060 normal differential, creatinine 1.1, BUN 21. EGFR has improved to 45cc per minute. ASSESSMENT: 1. Renal azotemia and dehydration has subsided 2. Enteritis has practically subsided 3. CHF under control PLAN: 1. Likely discharge the patient home tomorrow 2. The patient's telemetry strips examined, no arrhythmias except for atrial fibrillation with acceptable ventricular response noted. TIME SPENT: More than 30 minutes. Plan and coordination of the patient's care discussed in the presence of nurse. BING
--- NOTE | 2021-10-16 14:14 | PN ---
DATE OF SERVICE: 10/13/21 SUBJECTIVE: 80 year old white female originally was in swing bed, her kidney function deteriorated some with some symptoms of dehydration with the patient having diarrhea and nausea. The patient's condition has improved and she is feeling better. The hydration status has improved. Kidney functions are stable and improving some. She is up and about now. She was likely had acute gastritis of unknown etiology could be viral. In any case the patient is feeling better. REVIEW OF SYSTEMS: CONSTITUTIONAL: No night sweats. No fatigue, malaise, lethargy. No fever or chills. HEENT: Eyes: No visual changes. No eye pain. No eye discharge. ENT: No runny nose. No epistaxis. No sinus pain. No sore throat. No odynophagia. No congestion. RESPIRATORY: No cough, no congestion. No hemoptysis. No shortness of breath. CARDIOVASCULAR: No angina symptoms. No CHF symptoms. No atypical chest pain for CAD. No palpitations. No PND. No orthopnea. GASTROINTESTINAL: No abdominal pain. No nausea or vomiting. No diarrhea or constipation. No hematemesis. No hematochezia. GENITOURINARY: No urgency. No frequency. No dysuria. No hematuria. No obstructive symptoms. No discharge. No pain. No significant abnormal bleeding. MUSCULOSKELETAL: No musculoskeletal pain; no joint swelling. NEUROLOGICAL: No headache. No neck pain. No syncope. No seizures. No dizziness. PSYCHIATRIC: Not anxious. No depression. No suicidal thoughts. No homicidal thoughts. SKIN: No rash. No lesions. No wounds. ENDOCRINE: No unexplained weight loss. No weight gain. HEMATOLOGIC/LYMPHATIC: No anemia. No purpura. No petechiae. No prolonged or excessive bleeding. No palpable lymph nodes. PHYSICAL EXAMINATION: VITAL SIGNS: Temperature 97.6, pulse 83, respiratory rate 16, blood pressure 150/88 and pulse ox 95%. HEENT: Head normocephalic, atraumatic. Eyes: Extraocular muscles are intact. Pupils are equal, round and reactive to light and accommodation. Ears: No lesions. Nose appeared normal. Throat: No exudate or erythema. NECK: Supple. No JVD, no carotid bruit. No lymphadenopathy or thyromegaly. LUNGS: Decreased breath sounds but clear to auscultation. Percussion note normal. Chest symmetrical. HEART: S1, S2, no S3. No murmurs. No cyanosis or clubbing. No ascites. Pulses: Dorsalis pedis and posterior tibial pulses +1 to +2 bilaterally. ABDOMEN: Soft. Nontender. Bowel sounds active. No CVA tenderness. No mass felt. EXTREMITIES: No edema. Full range of motion of all extremities, equal. NEUROLOGIC: No focal deficit. Cranial nerves II through XII are grossly intact. No headache. No double vision. SKIN: Not dry. Intact. Turgor - normal. LYMPHATIC: No palpable lymph nodes/no lymphedema. MUSCULOSKELETAL: Normal joints with no swelling. Muscle tone is normal. LABS: Hgb 12.6, hct 41, WBC 5,900 normal differential, creatinine 1.2, BUN 25, potassium 4.5. ASSESSMENT: 1. Acute gastroenteritis type of symptoms have subsided. Skin turgor better. Appetite has improved 2. Renal azotemia seems to be subsiding. Kidney functions improving. 3. Atrial fibrillation, controlled and telemetry strips examined. No other arrhythmias noted other than atrial fibrillation noted with no PVC, acceptable from 65 to 85 per minute. 4. CHF TIME SPENT: More than 30 minutes. Plan and coordination of the patient's care discussed in the presence of nurse. BING
== END 2021-10-15 16:00 | disposition home health service (06) | DRG 684 ==
LOC: MEDSURG A 12:55
PROVIDERS: ADMIT Internal Medicine; ATTEND Internal Medicine

== ENCOUNTER 2022-12-24 12:00 | Inpatient (IN) ==
[2022-12-24] MEDS ORDERED: ATROPINE SULFATE PFS IVP PRN (12:46)
[2022-12-24] MEDS ORDERED: DEXTROSE 50%-WATER ABBOJECT IVP PRN (12:46)
[2022-12-24] MEDS ORDERED: NITROSTAT SL PRN (12:46)
[2022-12-24] MEDS ORDERED: TYLENOL PO PRN (12:46)
[2022-12-24 12:47] VITALS: BMI 42.2
[2022-12-24] MEDS ORDERED: DECADRON IM ONE (13:00)
[2022-12-24] MEDS ORDERED: LASIX IVP ONE (13:00)
[2022-12-24 13:05] LABS: BASOPHILS % (AUTO) 0.4 % (0.0-3.0); EOSINOPHILS # (AUTO) 0.1 K/ul (0.0-0.7); EOSINOPHILS % (AUTO) 0.9 % (0.0-7.0); HEMATOCRIT 39.6 % (37.0-47.0); HEMOGLOBIN 11.9 g/dl (12.0-16.0); IMMATURE GRANULOCYTE % (AUTO) 0.4 % (0.0-5.0); LYMPHOCYTES # (AUTO) 1.2 K/uL (0.60-3.4); LYMPHOCYTES % (AUTO) 15.2 (10.0-50.0); MEAN CORPUSCULAR HEMOGLOBIN 28.1 pg (27.0-31.0); MEAN CORPUSCULAR HGB CONC 30.1 (31.8-35.4); MEAN CORPUSCULAR VOLUME 93.4 fl (81.0-99.0); MONOCYTES % (AUTO) 12.1 (0-10); NEUTROPHILS # (AUTO) 5.6 K/ul (2.0-6.9); PLATELET COUNT 163 10^3/uL (140-440); RDW COEFFICIENT OF VARIATION 14.2 % (11.6-14.8); RED BLOOD COUNT 4.24 10^6/ul (4.20-5.40); WHITE BLOOD COUNT 7.94 K/ul (4.6-10.2)
[2022-12-24 13:17] LABS: ALANINE AMINOTRANSFERASE 18.9 U/L (0-35); ALBUMIN 4.05 g/dL (3.5-5.0); ALKALINE PHOSPHATASE 95.3 U/L (53-141); ASPARTATE AMINO TRANSFERASE 23.1 U/L (14-36); BILIRUBIN,TOTAL 0.61 mg/dL (0.2-1.3); BLOOD UREA NITROGEN 26.2 mg/dL (7-17); CALCIUM 9.12 mg/dL (8.4-10.2); CARBON DIOXIDE 27.5 mmol/L (22-30.0); CHLORIDE 103.6 mmol/L (98-107); GLUCOSE 124.1 mg/dL (74-106); POTASSIUM 4.62 mmol/L (3.5-5.1); SODIUM 140.2 mmol/L (134.5-145); TOTAL PROTEIN 7.28 g/dL (6.3-8.2)
[2022-12-24 13:28] LABS: TROPONIN I 0.062 ng/ml (0.0000-0.120)
[2022-12-24 13:32] LABS: CREATINE KINASE MB 3.09 ng/ml (0.0-2.38)
[2022-12-24 13:48] LABS: BILIRUBIN,URINE Negative (NEGATIVE); CLARITY,URINE Cloudy (CLEAR); COLOR,URINE Yellow (YELLOW); GLUCOSE, URINE (UA) 2+ (NEGATIVE); KETONES,URINE Negative (NEGATIVE); LEUKOCYTE ESTERASE ,URINE 2+ (NEGATIVE); NITRITE,URINE Negative (NEGATIVE); PH,URINE 7.5 (5-9); PROTEIN,URINE Trace (NEGATIVE); URINE, BLOOD Trace-intact (NEGATIVE); UROBILINOGEN,URINE 0.2 (0.2)
[2022-12-24 14:11] LABS: URINE WBC, MICROSCOPIC TNTC (0-2)
[2022-12-24 14:12] LABS: BACTERIA,URINE 1+ (NOT PRESENT); TRIPLE PHOSPHATE CRYSTAL,UR 1+ (NOT PRESENT)
[2022-12-24] MEDS ORDERED: LASIX TAB PO PRN (14:14)
[2022-12-24] MEDS ORDERED: ULTRAM PO PRN (14:19)
--- NOTE | 2022-12-24 15:23 | DI ---
EXAM: CHEST RADIOGRAPH TECHNIQUE: Two views. Frontal and lateral. HISTORY: Shortness of breath. COMPARISON: 10/11/2021 FINDINGS: EKG leads project over the chest. No pulmonary infiltrate is identified. No pleural effusion or pneumothorax is seen. Stable mild cardiomegaly. No acute displaced rib fractures are identified. Postsurgical change of the distal right clavicle, again noted. IMPRESSION: 1. No acute findings in the chest. 2. Stable cardiomegaly.
--- NOTE | 2022-12-24 15:27 | US ---
EXAM: BILATERAL LOWER EXTREMITY DEEP VENOUS ULTRASOUND WITH DOPPLER IMAGING HISTORY: Bilateral leg pain and swelling. TECHNIQUE: Lopez-scale ultrasound with compression maneuvers and color and spectral Doppler ultrasound at rest and with augmentation of the veins was performed. Images were obtained and stored in a [employer] archive. COMPARISON: None. FINDINGS: The deep veins of the lower extremities were evaluated from the level of the common femoral veins thr ough the superficial femoral veins and popliteal veins as well as the calf veins. All segments show normal compressibility and augmentation, and normal color flow. There is no evidence of intraluminal thrombosis. Greater saphenous veins are patent. Other Findings: None. IMPRESSION: 1. No deep venous thrombosis (DVT) in the right or left lower extremity. *Note: Anticoagulation for SVT can be considered only if greater than or equal to 5 cm in length. ([email or web address].[email or web address]/[email or web address] [id number])
--- NOTE | 2022-12-24 15:30 | DI ---
EXAM: LEFT HIP, 2 VIEWS HISTORY: Hip pain, fall FINDINGS / IMPRESSION: Nonstandard positioning limits the exam. An acute fracture is not seen. No joint dislocation. There appears to be moderately severe hip osteoarthritis. No acute soft tissue finding. If symptoms are severe or persist, consider follow-up radiography or CT.
[2022-12-24] MEDS: ELIQUIS PO SCH ×2 (15:56→20:32)
[2022-12-24] MEDS: JARDIANCE PO SCH (15:56)
[2022-12-24] MEDS: ENTRESTO 24 MG-26 MG TABLET PO SCH ×2 (15:56→20:31)
[2022-12-24] MEDS: PRAVACHOL PO SCH (15:56)
[2022-12-24] MEDS: LIDODERM 5 % PATCH TP SCH (15:57)
[2022-12-24] MEDS: COREG PO SCH ×2 (15:57→16:51)
[2022-12-24] MEDS: PROTONIX PO SCH (17:00)
[2022-12-24] MEDS: XALATAN EACHEYE SCH (20:32)
[2022-12-24] MEDS: DORZOLAMIDE TIMOLOL EACHEYE SCH (20:34)
[2022-12-24] MEDS: XANAX PO PRN (20:40)
[2022-12-24] MEDS: SANCTURA PO SCH (20:53)
[2022-12-24] MEDS ORDERED: DESYREL PO PRN (21:00)
[2022-12-24 22:28] LABS: CREATINE KINASE 101.9 U/L (30-135)
[2022-12-24 22:41] LABS: TROPONIN I 0.046 ng/ml (0.0000-0.120)
[2022-12-25 05:28] LABS: BASOPHILS % (AUTO) 0.2 % (0.0-3.0); EOSINOPHILS % (AUTO) 0.2 % (0.0-7.0); HEMATOCRIT 38.7 % (37.0-47.0); IMMATURE GRANULOCYTE % (AUTO) 0.5 % (0.0-5.0); LYMPHOCYTES # (AUTO) 0.9 K/uL (0.60-3.4); LYMPHOCYTES % (AUTO) 12.9 (10.0-50.0); MEAN CORPUSCULAR HEMOGLOBIN 28.5 pg (27.0-31.0); MEAN CORPUSCULAR VOLUME 91.9 fl (81.0-99.0); MONOCYTES # (AUTO) 0.6 K/uL (0.4-2.0); MONOCYTES % (AUTO) 8.7 (0-10); NEUTROPHILS # (AUTO) 5.1 K/ul (2.0-6.9); NEUTROPHILS % (AUTO) 77.5 % (42.2-75.2); PLATELET COUNT 172 10^3/uL (140-440); RDW COEFFICIENT OF VARIATION 14.1 % (11.6-14.8); RED BLOOD COUNT 4.21 10^6/ul (4.20-5.40); WHITE BLOOD COUNT 6.58 K/ul (4.6-10.2)
[2022-12-25] MEDS: PROTONIX PO SCH ×2 (05:35→16:47)
[2022-12-25 05:44] LABS: ALANINE AMINOTRANSFERASE 19.1 U/L (0-35); ALBUMIN 3.88 g/dL (3.5-5.0); ALKALINE PHOSPHATASE 98.9 U/L (53-141); ASPARTATE AMINO TRANSFERASE 23.8 U/L (14-36); BILIRUBIN,TOTAL 0.59 mg/dL (0.2-1.3); BLOOD UREA NITROGEN 25.7 mg/dL (7-17); CALCIUM 9.13 mg/dL (8.4-10.2); CARBON DIOXIDE 28.8 mmol/L (22-30.0); CHLORIDE 102.8 mmol/L (98-107); CREATININE 0.98 mg/dL (0.60-1.30); GLUCOSE 143.5 mg/dL (74-106); POTASSIUM 3.78 mmol/L (3.5-5.1); SODIUM 139.3 mmol/L (134.5-145); TOTAL PROTEIN 7.03 g/dL (6.3-8.2)
[2022-12-25] MEDS: MICRO-K CAP PO SCH (07:53)
[2022-12-25] MEDS: COREG PO SCH ×2 (07:53→16:47)
[2022-12-25] MEDS: PRAVACHOL PO SCH (08:36)
[2022-12-25] MEDS: JARDIANCE PO SCH (08:36)
[2022-12-25] MEDS: ENTRESTO 24 MG-26 MG TABLET PO SCH ×2 (08:36→20:39)
[2022-12-25] MEDS: LIDODERM 5 % PATCH TP SCH (08:37)
[2022-12-25] MEDS: ELIQUIS PO SCH ×2 (08:38→20:39)
[2022-12-25] MEDS: DORZOLAMIDE TIMOLOL EACHEYE SCH ×2 (08:41→20:43)
[2022-12-25] MEDS: SANCTURA PO SCH ×2 (08:42→20:42)
--- NOTE | 2022-12-25 11:03 | HP ---
DATE OF SERVICE: 12/24/22 REASON FOR HOSPITALIZATION/HISTORY OF PRESENT ILLNESS: Went to ER times two. !st left shoulder pain, 2nd fall at home left knee and ankle sprain unable to walk. PAST MEDICAL HISTORY/PAST SURGICAL HISTORY: Atrial fibrillation with cardioversion 12/20 Bonner- echo 11/19 39% Chronic anemia Hypertension Obesity History of GI bleed Osteoarthritis Bilateral knees Ataxia Left shoulder pain Hyperglycemia Left total knee replacement 11/11 Hypothyroidism Thyroid nodules times three- Dr. Tiwari 03/17 Chronic kidney disease stage 3 Hypertension Osteoarthritis Morbid obesity Fatty liver Bladder surgery Dyslipidemia REVIEW OF SYSTEMS: CONSTITUTIONAL: No fever, Fatigue. HEENT: No sinus drainage, no sore throat. RESPIRATORY: No cough, no congestion. CARDIOVASCULAR: No atypical chest pain for coronary artery disease. No angina, CHF symptoms. Shortness of breath. Palpitations. GASTROINTESTINAL: No melena or abdominal pain. No GERD. GENITOURINARY: No hematuria, no prostatism, no polyuria. PRINTING SPECIALIST: No blackout, no dizziness, no headache, no double vision. GAIT: Unable MUSCULOSKELETAL: No osteoarthritis pain, Joint swelling-left knee. ENDOCRINE: No weight loss, no weight gain. SKIN: Not dry, no rash. PSYCHIATRIC: Anxious, no depression, no suicidal thoughts, no homicidal thoughts. MEDICATIONS: Alprazolam 0.5mg twice a day Eliquis 5mg orally twice a day Carvedilol 6.25mg one tablet twice daily Dorzolamide Jardiance 10mg orally once Lasix 40mg orally daily as needed Latanoprost eye drops Lidocaine Pantoprazole 40mg twice daily before meals Potassium 10meq tablet extended release take one tablet daily Entresto one tablet orally twice a day Tramadol 50mg orally twice a day as needed for pain Trazodone 50mg orally every day at bedtime Trospium 20mg take one tablet twice daily ALLERGIES: No known allergies PHYSICAL EXAMINATION: V/S: Pulse 84, blood pressure 122/72, temperature 97.9, oxygen saturation 97%, weight 274. GENERAL APPEARANCE: Oriented. Pale, dry mucous membranes. HEENT: Normal. NECK: No JVP, no bruits. RESPIRATORY: Decreased breath sounds. CARDIOVASCULAR: S1, S2, no S3, irregular. No cyanosis, clubbing. No ascites. GI/ABDOMEN: No tenderness. Bowel sounds are active. EXTREMITIES: +1 bilateral leg edema, pulses +1, equal. PRINTING SPECIALIST: Deep tendon reflexes, sensory, motor and gait all normal. RECTAL: 02/18 screening. /PELVIC: 06/20 Candido Fletcher. ASSESSMENT: 1. Shortness of breath 2. Leg edema 3. Fall 4. Status post fall 5. Atrial fibrillation with cardioversion 12/20 Bonner- echo 11/19 39% 6. Chronic anemia 7. Hypertension 8. Obesity 9. History of GI bleed 10.Osteoarthritis Bilateral knees 11.Ataxia 12.Left shoulder pain 13.Hyperglycemia 14.Left total knee replacement 11/11 15.Hypothyroidism 16.Thyroid nodules times three- Dr. Tiwari 03/17 17. Chronic kidney disease stage 3 18. Hypertension 19. Osteoarthritis 20. Morbid obesity 21. Fatty liver 22. Bladder surgery 23. Dyslipidemia PLAN: 1. Routine telemetry orders 2. CBC and CMP now and daily 3. Lasix 20mg IV now and times one 4. Elevate legs 5. Daily weight 6. I&O 7. Regular diet 8. Bilateral venous scan 9. 1cc Decadron 4mg IM today 10.X-ray left hip 11.DNI 12.Urinalysis 13.O2 PRN 14.Fall precautions 15.PT/OT consult TIME SPENT: More than 75 minutes. MTDD
[2022-12-25] MEDS ORDERED: TORADOL IVP PRN (11:57)
--- NOTE | 2022-12-25 11:59 | RS.PTINEVL ---
Subjective Patient information Date of Evaluation: 12/25/22 Date of Arrival on Unit: 12/24/22 Admitted From:: Home Diagnosis: falls, possible UTI, difficulty walking Usual Living Arrangement: Alone Living Arrangement Comments: pt is recently , GRANDSON LIVES WITH HER. Has caregivers part of the day Home Environment: House and Ramp Medical History: Hypertension, CHF and Arthritis Medical History Comments:: chronic kidney disease, Afib, anemia, GERD, possible L distal tibial fx unsure of how long ago, L ankle sprain LATEX ALLERGY?: No Surgical History: Knee Replacement Medications: see chart Subjective Information/ Patient Comments:: pt states she fell at home 2x and was actually in ER 2x on Friday and went to MD office and he admitted pt. 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) Abilities prior to this admission: pt has caregivers some during the stay Current Level of Function: Partially Dependent Current Equipment Used at Home: rolling walker (which was her 's, elevated BSC Pain Assessement Location Left Ankle: Description: Sharp, Throbbing and Aching Pain Behavior: Guarding and Facial Grimacing Pain Aggravating Factors: Standing and Walking Pain Alleviating Factors: Heat and Medication Right Shoulder: Description: Throbbing and Aching Pain Behavior: Guarding and Facial Grimacing Pain Aggravating Factors: Changing Position Interventions Objective Patient Orientation: Person, Place, Time and Situation Current Interventions: IV's and Telemetry Observation: bruising noted to L dorsum of foot as well as med and lat malleoli Range of Motion ROM Right Upper Extremity AROM: WFL's Left Upper Extremity AROM: Slight limitation (limited L shld ROM due to pain) Right Lower Extremity AROM: WFL's Left Lower Extremity AROM: Moderate limitation (L ankle limited ) Muscle Strength Muscle Strength Right Upper Extremity: Mild Weakness (grossly 4/5) Left Upper Extremity: Mild Weakness (shld flex 3-/5, elbow flex/ext 4-/5) Right Lower Extremity: Mild Weakness (hip flex 4-/5, knee flex/ext 4/5, ankle 4/5) Left Lower Extremity: Mild Weakness (hip flex 3+/5, knee flex ext 4-/5, ankle 3- /5) Sensation Sensation Right Upper Extremity: Intact/Normal Left Upper Extremity: Intact/Normal Right Lower Extremity: Intact/Normal Left Lower Extremity: Intact/Normal Palpation Palpation Findings: Tenderness (L ankle ) Balance Sitting Balance and Reactions Static Sitting Balance: Fair Dynamic Sitting Balance: Fair Standing Balance and Reactions Static Standing Balance: Poor Dynamic Standing Balance: Poor Standing Equilibrium Reactions: Delayed Left and Delayed Right Standing Protective Reactions: Delayed Left and Delayed Right Comments Balance Assessment Comments: pt able to maintain dyn sitting balance against min challenges Functional Mobility Bed Mobility Rolling R/L: Mod Assist and 1 person assist Scooting: Mod Assist and 2 person assist Supine to Sit: Mod Assist, 1 person assist and 2 person assist Transfers Sit to Stand: Min Assist, 1 person assist and 2 person assist Stand to Sit: Min Assist and 1 person assist Safety Awareness Safety Awareness: Fair EYAL INDEX SCORE: n/a Ambulation Ambulation Assistive Device Used: Rolling Walker Orthotic/Prosthetic Device: No Distance: 12ft Assistance needed with Ambulation: Min Assist and 1 person assist Gait Deviations: Wide Based gait, Step-to gait, Forward posture and Short stride Ambulation Comments: pt amb with antalgic gait, decreased step length, c/o pain in L ankle Factors Affecting Ambulation: Decreased Balance, Pain, Weakness, Decreased Coordination, Decreased ROM, Decreased Safety and Limited Endurance Treatment time Units charged ADL: 1 (Ther ACT) Time with patient Length of Evaluation: 19 Total treatment time: 34 Patient Education Education Patient Education: Activity Modification and Education of Plan of Care Teaching Recipient: Patient Teaching Methods: Discussion Assessment Assessment Problem List:: Decreased level of function, Requires training/education, D ecreased safety/Risk of falls, Weakness and Pain limits previous level of function Rehab Potential: Good Further Therapy Indicated?: Yes Candidate for Swing Bed for Therapy Services?: Feel pt would be a candidate for swing bed if pt has 3 day stay Evaluation Complexity: HISTORY: Medium, EXAM OF BODY SYSTEMS: Medium, CLINICAL PRESENTATION: Medium and CLINICAL DECISION MAKING: Medium Patient's Goal(s): Be able to walk with my walker again and go back to my house Short Term Goals GOAL #1: pt independent with rolling and scooting in bed. Goal to be met by: 12/30/22 GOAL #2: Transfer sup to/from sit min x 1 Goal to be met by: 12/30/22 GOAL #3: Transfer sit to/from stand min x 1 Goal to be met by: 12/30/22 GOAL #4: pt amb with rwx 50ft with min x 1 with no seated rest period. Goal to be met by: 12/30/22 GOAL #5: Improve BLE strength to 4 to 4+/5 Goal to be met by: 12/30/22 [facility] Goals GOAL #1: pt transfer sup to/from sit to/from stand CGA Goal to be met by: 01/01/23 GOAL #2: pt amb functional household distances with rwx w SBA Goal to be met by: 01/01/23 GOAL #3: Dyn stand balance improved to fair - Goal to be met by: 01/01/23 Plan Plan of Care: Therapeutic EX, Neuromuscular Re-Educ and Therapeutic Activity Other:: gait training Frequency of Treatment: 1-2 X day, as tolerated Duration of Treatment: 1 Week Anticipated Discharge Destination: Home Treatment Diagnosis (ICD 10 Codes): fx L distal tibia gait difficulty R 26.2 impaired balance R 26.82 weakness M62.81 Has the Physician been added for Co-signature?: Yes
[2022-12-25] MEDS: TORADOL IVP PRN (12:12)
--- NOTE | 2022-12-25 13:16 | RS.OTINEVL ---
Subjective Patient information Date of Evaluation: 12/25/22 Date of Arrival on Unit: 12/24/22 Admitted From:: Home Diagnosis: SOB, L leg edema, Fall PRECAUTIONS: Fall risk Usual Living Arrangement: Alone Living Arrangement Comments: GRANDSON LIVES WITH HER, with ramp. Pt has supportive family. Home Environment: House and Ramp Medical History: Hypertension, CHF and Arthritis (RA and OA) Medical History Comments:: GERD, AFIB, hypothyroid, glaucoma, chronic kidney disease, macular degeneration LATEX ALLERGY?: No Surgical History: Knee Replacement and Cholecystectomy Surgical History Comments:: appey, bladder surgery, rotator cuff, cataract surgery Medications: see chart Subjective Information/ Patient Comments:: "I went to get up and pull up my pajamas and I fell forward." "They gave me a shot yesterday." Level of function Prior to this admission, the patient could do the following:: Independent Selfcare, Independent ADL's, Independent Ambulation, 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 Pt was using a rolling walker at home. Current Level of Function: Partially Dependent Current Equipment Used at Home: WALKER, RAISED TOILET SEAT WITH BARS Pain Assessment Pain Side: left Pain Location Body Site: Ankle Pain Aggravating Factors: Changing Position, Standing and Walking Pain Alleviating Factors: Medication, Exercise and Position Change Interventions Objective Patient Orientation: Person, Place, Time and Situation Balance Sitting Balance Static Sitting Balance: Good Dynamic Sitting Balance: Good Standing Balance Static Standing Balance: Poor Dynamic Standing Balance: Poor ADL Skills Self Feeding Self Feeding: Independent Grooming Grooming: Min Assist Grooming Set-up: Sitting Bathing Bathing UE: Min Assist Bathing LE: Max Assist Bathing Set-up: Shower Dressing Dressing UE: CGA Dressing LE: Max Assist Toilet Management Toilet Hygiene: Mod Assist Toilet Clothing Management: Min Assist Comments Comments:: Pt is limiting the amount of weight she puts on the LLE. Functional Mobility Bed Mobility Scooting: Min Assist Supine to Sit: Mod Assist Transfers Sit to Stand: Min Assist Stand to Sit: Min Assist Stand Pivot Transfers: Min Assist Ambulation Weight Bearing Status: FWB Assistive Device Used: Rolling Walker Orthotic/Prosthetic Device: No Assistance needed with Ambulation: Min Assist Safety Awareness Safety Awareness: Good EYAL INDEX SCORE: . Additional Treatment Performed Time with patient Length of Evaluation: 20 Total treatment time: 21 Activities Do you enjoy playing games?: Yes Would you be interested in leaving your room for activities?: Yes Would you enjoy group activities?: Yes Do you have difficulty with your vision?: No Patient Interests:: Reading Books/Magazines, Watching Television, Puzzles/Games and Visiting/Socializing Patient Education Patient Education: Education of diagnosis, Body/Joint mechanics, Home Exercise Program, Home Safety and Education of Plan of Care Teaching Recipient: Patient Teaching Methods: Discussion and Demonstration Assessment Problem List:: Decreased level of function, Requires training/education, Decreased safety/Risk of falls, Weakness and Pain limits previous level of function Rehab Potential: Good Further Therapy Indicated?: Yes Evaluation Complexity: HISTORY: Medium, EXAM OF BODY SYSTEMS: Medium and CLINICAL DECISION MAKING: Medium Patient's Goal(s): To be able to return home and take care of herself. Short Term Goals Goals GOAL 1: Pt to be CGA for showering with a shower chair. Goal to be met by: 12/28/22 Progress towards goal: Met GOAL 2: Pt to increase her activity tolerance to 8-10 minutes with rests PRN. Goal to be met by: 12/28/22 GOAL 3: Pt to be modified independent with toilet hygiene. Goal to be met by: 12/28/22 GOAL 4: Pt to increase LUE strength to 4-/5 to increase safety of functional mobil Goal to be met by: 12/28/22 [employer] Goals GOAL 1: Pt to increase her ADLS to SUP. Goal to be met by: 12/31/22 GOAL 2: Pt to increase activity tolerance to 15 minutes to increase safety. Goal to be met by: 12/31/22 GOAL 3: Pt to increase her BUE strength to 4+/5. Goal to be met by: 12/31/22 Plan Plan of Care: Therapeutic EX, Therapeutic Activity and Self-Care/Home Management Modalities: Cold Pack/Cryotherapy, Ultrasound and Electrical Stimulation Frequency of Treatment: 1-2 X day, as tolerated Duration of Treatment: 1 Week Anticipated Discharge Destination: Home Treatment Diagnosis (ICD 10 Codes): Weakness R53.1, M25.512 LUE shlder pain, Z74.1 Need for assistance with personal care Has the Physician been added for Co-signature?: Yes
[2022-12-25] MEDS ORDERED: STADOL IVP PRN (14:05)
--- NOTE | 2022-12-25 14:43 | PN ---
DATE OF SERVICE: 12/25/22 SUBJECTIVE: 82 year old white female hospitalized with shortness of breath, leg edema and a history of fall where she was unable to walk. The patient has left ankle fracture, seems to be remote and has pain level 8-9 when she tries to walk or put pressure on it. The patient practically spent all day on 12-23-22 in the emergency room, went twice and was sent home because she did not meet the criteria for admission. Further examining her yesterday the patient had leg edema and complaint of more shortness of breath initially we thought that her shortness of breath was from inactivity and weight gain. The patient weight 270 pounds and BMI is 42 and has multiple other medical problems involving her heart. On further questioning the patient is positive for orthopnea, she had yesterday in the office JVP 2cm with few basal crepitation. Leg edema +1 to plus leg edema more on the left than the right. REVIEW OF SYSTEMS: CONSTITUTIONAL: No night sweats. No fatigue, malaise, lethargy. No fever or chills. HEENT: Eyes: No visual changes. No eye pain. No eye discharge. ENT: No runny nose. No epistaxis. No sinus pain. No sore throat. No odynophagia. No congestion. RESPIRATORY: No cough, no congestion. No hemoptysis. Shortness of breath somewhat better. CARDIOVASCULAR: No angina symptoms. No CHF symptoms. No atypical chest pain for CAD. No palpitations. No PND. No orthopnea. GASTROINTESTINAL: No abdominal pain. No nausea or vomiting. No diarrhea or constipation. No hematemesis. No hematochezia. GENITOURINARY: No urgency. No frequency. No dysuria. No hematuria. No obstructive symptoms. No discharge. No pain. No significant abnormal bleeding. MUSCULOSKELETAL: No musculoskeletal pain; no joint swelling. Pain and swelling is much less. She is unable to walk because of the pain in the left ankle. NEUROLOGICAL: No headache. No neck pain. No syncope. No seizures. No dizziness. PSYCHIATRIC: Not anxious. No depression. No suicidal thoughts. No homicidal thoughts. SKIN: No rash. No lesions. No wounds. ENDOCRINE: No unexplained weight loss. No weight gain. HEMATOLOGIC/LYMPHATIC: No anemia. No purpura. No petechiae. No prolonged or excessive bleeding. No palpable lymph nodes. PHYSICAL EXAMINATION: VITAL SIGNS: Temperature 98, pulse 69, respiratory rate 18, blood pressure 156/74 and pulse ox 95%. HEENT: Head normocephalic, atraumatic. Eyes: Extraocular muscles are intact. Pupils are equal, round and reactive to light and accommodation. Ears: No lesions. Nose appeared normal. Throat: No exudate or erythema. NECK: Supple. JVP absent today, no carotid bruit. No lymphadenopathy or thyromegaly. LUNGS: Decreased breath sounds with few crepitation at base. Clear to auscultation. Percussion note normal. Chest symmetrical. HEART: S1, S2, questionable S3. No murmurs. No cyanosis or clubbing. No ascites. Pulses: Dorsalis pedis and posterior tibial pulses +1 to +2 bilaterally. ABDOMEN: Soft. Nontender. Bowel sounds active. No CVA tenderness. No mass felt. EXTREMITIES: Trace edema. Full range of motion of all extremities, equal. NEUROLOGIC: No focal deficit. Cranial nerves II through XII are grossly intact. No headache. No double vision. SKIN: Not dry. Intact. Turgor - normal. LYMPHATIC: No palpable lymph nodes/no lymphedema. MUSCULOSKELETAL: Normal joints with no swelling. Muscle tone is normal. ASSESSMENT: 1. Shortness of breath, Leg edema with some symptoms of CHF seems to be early CHF 2. Left ankle pain and inability to walk 3. Abnormal U/A likely maybe urinary tract infection, cultures pending 4. Atrial fibrillation with cardioversion 12/[address] Castro. Ejection fraction 39% on October 2021 5. Morbid obesity 6. Left total knee replacement 7. Chronic kidney disease 8. DJD of left shoulder 9. Dyslipidemia 10.Hypertension 11.History of fall with admission PLAN: 1. IV Lasix given yesterday 2. One dose of IV Lasix today 3. Elevate the legs 4. Will do CT scan of the left ankle 5. Echocardiogram to evaluation ejection fraction 6. Blood pressure is upper limit of normal, systolic 156 today 7. Continue Entresto 8. The patient needs physical therapy but she needs to be stable first. 9. Toradol 30mg IV Q 12 hours 10. Add Stadol 1mg Q 3 hourly for pain PRN TIME SPENT: More than 35 minutes. Plan and coordination of the patient's care discussed in the presence of nurse. MTDD
--- NOTE | 2022-12-25 15:32 | CT ---
EXAM: CT OF THE LEFT ANKLE WITHOUT CONTRAST COMPARISON: Ankle radiographs 12/23/2022. HISTORY: Left ankle pain. Fall 2 days ago. Abnormality of the tibia noted on recent radiographs. TECHNIQUE: Noncontrast CT images were obtained through the ankle. Axial reconstructions with sagitt al and coronal reformats were provided. 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 Additional smaller well corticated ossifications. Well corticated ossifications measuring up to 0.7 cm in size along the anteroinferior portion of the lateral malleolus along the expected location of the anterior talofibular ligament through the calcaneofibular ligament attachment related to an ol d avulsion fracture. Abnormal attenuation along the anterolateral gutter at the expected location of the anterior talofibular ligament, concerning for underlying chronic ligament injury at that site. There is also a well corticated ossification/spur measuring 0.9 cm extent along the anterior portion of the syndesmosis in the region of the anterior inferior tibiofibular ligament related to old injury of the syndesmosis/old ligament injury without widening of the syndesmosis. This likely represents an abnormality described on recent radiographs superimposed of the lateral portion of the tibia. No acute fracture or dislocation. The talar dome. The ankle mortise are unremarkable. No moderate-to- large joint effusion. 0.4 x 0.1 cm linear calcific/ossific density along the dorsal lateral aspect o f the distal calcaneus along the margin of the calcaneocuboid articulation could represent old avulsi on fracture though acute to subacute flake avulsion fracture at that site is not excluded. This is b est seen on image 81 of series 2006 and image 31 of series 2003. Plantar calcaneal and retrocalcanea l spurs. Degenerative changes at the tarsometatarsal joints most severe at the second and third digi ts with subchondral cystic change articular surface remodeling. Moderate to severe joint space narro wing at the navicular cuneiform articulation with less pronounced degenerative change throughout the remainder of the ankle/hind-foot. 1.6 x 0.7 cm sclerotic lesion superiorly in the calcaneal tuberosi ty favors a benign bone island or bone infarct Subcutaneous edema ill-defined subcutaneous fluid most extensive laterally without deep soft tissue u lcer or definite drainable fluid collection. No soft tissue mass identified. No deep soft tissue ga s. Diffuse muscle atrophy. Vascular calcifications. Fifth metatarsal base bone spur. 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 This includes a well corticated ossification along the anterior portion of the synd esmosis related old trauma and likely accounting for the abnormality described on radiographs. Findi ngs concerning for underlying ligament injury in particular at the anterior talofibular ligament and deltoid ligament as detailed above and correlation with MRI of the ankle could be considered. Question flake avulsion fracture of the distal calcaneus dorsally and laterally along the margin of t he calcaneocuboid articulation. Degenerative changes most severe at the tarsometatarsal and navicular cuneiform articulations. Calca shana spurs. Subcutaneous edema without drainable fluid collection. Benign appearing sclerotic lesion within the calcaneal tuberosity All CT scans are performed using dose optimization techniques as appropriate to the performed exam an d include at least one of the following: Automated exposure control, adjustment of the mA and/or kV according t o size, and the use of iterative reconstruction technique.
[2022-12-25] MEDS: XANAX PO PRN (20:39)
[2022-12-25] MEDS: XALATAN EACHEYE SCH (20:39)
[2022-12-26] MEDS: PROTONIX PO SCH ×2 (05:41→16:56)
[2022-12-26 06:00] LABS: BASOPHILS % (AUTO) 0.6 % (0.0-3.0); EOSINOPHILS # (AUTO) 0.2 K/ul (0.0-0.7); EOSINOPHILS % (AUTO) 3.4 % (0.0-7.0); HEMATOCRIT 38.1 % (37.0-47.0); HEMOGLOBIN 11.6 g/dl (12.0-16.0); IMMATURE GRANULOCYTE % (AUTO) 0.5 % (0.0-5.0); LYMPHOCYTES # (AUTO) 1.8 K/uL (0.60-3.4); LYMPHOCYTES % (AUTO) 29.1 (10.0-50.0); MEAN CORPUSCULAR HEMOGLOBIN 28.4 pg (27.0-31.0); MEAN CORPUSCULAR HGB CONC 30.4 (31.8-35.4); MEAN CORPUSCULAR VOLUME 93.2 fl (81.0-99.0); MONOCYTES # (AUTO) 0.6 K/uL (0.4-2.0); MONOCYTES % (AUTO) 9.8 (0-10); NEUTROPHILS # (AUTO) 3.5 K/ul (2.0-6.9); NEUTROPHILS % (AUTO) 56.6 % (42.2-75.2); PLATELET COUNT 174 10^3/uL (140-440); RDW COEFFICIENT OF VARIATION 14.3 % (11.6-14.8); RED BLOOD COUNT 4.09 10^6/ul (4.20-5.40); WHITE BLOOD COUNT 6.25 K/ul (4.6-10.2)
[2022-12-26 06:14] LABS: ALANINE AMINOTRANSFERASE 26.7 U/L (0-35); ALBUMIN 3.51 g/dL (3.5-5.0); ALKALINE PHOSPHATASE 106.7 U/L (53-141); ASPARTATE AMINO TRANSFERASE 30.8 U/L (14-36); BILIRUBIN,TOTAL 0.28 mg/dL (0.2-1.3); BLOOD UREA NITROGEN 29.6 mg/dL (7-17); CALCIUM 8.77 mg/dL (8.4-10.2); CARBON DIOXIDE 27.2 mmol/L (22-30.0); CHLORIDE 104.6 mmol/L (98-107); CREATININE 0.96 mg/dL (0.60-1.30); GLUCOSE 127.5 mg/dL (74-106); POTASSIUM 3.88 mmol/L (3.5-5.1); SODIUM 138.5 mmol/L (134.5-145); TOTAL PROTEIN 6.51 g/dL (6.3-8.2)
[2022-12-26] MEDS: PRAVACHOL PO SCH (08:57)
[2022-12-26] MEDS: JARDIANCE PO SCH (08:58)
[2022-12-26] MEDS: ENTRESTO 24 MG-26 MG TABLET PO SCH ×2 (08:59→20:39)
[2022-12-26] MEDS: LIDODERM 5 % PATCH TP SCH (09:00)
[2022-12-26] MEDS: MICRO-K CAP PO SCH (09:07)
[2022-12-26] MEDS: COREG PO SCH ×2 (09:07→16:56)
[2022-12-26] MEDS: ELIQUIS PO SCH ×2 (09:09→20:39)
[2022-12-26] MEDS: DORZOLAMIDE TIMOLOL EACHEYE SCH ×2 (09:43→20:41)
[2022-12-26] MEDS: SANCTURA PO SCH ×2 (09:43→20:40)
[2022-12-26] MEDS: CIPRO PO SCH ×2 (12:40→20:44)
[2022-12-26] MEDS: XANAX PO PRN (20:39)
[2022-12-26] MEDS: XALATAN EACHEYE SCH (20:40)
[2022-12-26] MEDS: TORADOL IVP PRN (20:40)
[2022-12-27] MEDS: PROTONIX PO SCH (05:05)
[2022-12-27] MEDS: CIPRO PO SCH (05:05)
[2022-12-27] MEDS: JARDIANCE PO SCH (08:32)
[2022-12-27] MEDS: PRAVACHOL PO SCH (08:32)
[2022-12-27] MEDS: ENTRESTO 24 MG-26 MG TABLET PO SCH (08:32)
[2022-12-27] MEDS: LIDODERM 5 % PATCH TP SCH (08:32)
[2022-12-27] MEDS: COREG PO SCH (08:35)
[2022-12-27] MEDS: ELIQUIS PO SCH (08:36)
[2022-12-27] MEDS: MICRO-K CAP PO SCH (08:49)
[2022-12-27] MEDS: DORZOLAMIDE TIMOLOL EACHEYE SCH (08:53)
[2022-12-27] MEDS: SANCTURA PO SCH (08:53)
--- NOTE | 2022-12-27 10:10 | PN ---
DATE OF SERVICE: 12/26/22 SUBJECTIVE: 82 year old white female was hospitalized with shortness of breath, leg edema and history of fall with ligament damage on the left leg. The patient's pain is under control. She has physial therapy. She has Riccardo bandage with ankle brace. I have instructed the hospital to get walking air cast for the leg which is effected. The patient is less short of breath and leg swelling has practically subsided. REVIEW OF SYSTEMS: CONSTITUTIONAL: No night sweats. No fatigue, malaise, lethargy. No fever or chills. HEENT: Eyes: No visual changes. No eye pain. No eye discharge. ENT: No runny nose. No epistaxis. No sinus pain. No sore throat. No odynophagia. No congestion. RESPIRATORY: No cough, no congestion. No hemoptysis. No shortness of breath. CARDIOVASCULAR: No angina symptoms. No CHF symptoms. No atypical chest pain for CAD. No palpitations. No PND. No orthopnea. GASTROINTESTINAL: No abdominal pain. No nausea or vomiting. No diarrhea or constipation. No hematemesis. No hematochezia. GENITOURINARY: No urgency. No frequency. No dysuria. No hematuria. No obstructive symptoms. No discharge. No pain. No significant abnormal bleeding. MUSCULOSKELETAL: No musculoskeletal pain; no joint swelling. NEUROLOGICAL: No headache. No neck pain. No syncope. No seizures. No dizziness. PSYCHIATRIC: Not anxious. No depression. No suicidal thoughts. No homicidal thoughts. SKIN: No rash. No lesions. No wounds. ENDOCRINE: No unexplained weight loss. No weight gain. HEMATOLOGIC/LYMPHATIC: No anemia. No purpura. No petechiae. No prolonged or excessive bleeding. No palpable lymph nodes. PHYSICAL EXAMINATION: VITAL SIGNS: Temperature 98.6, pulse 60, respiratory rate 18, blood pressure 150/80 and pulse ox 94% on room air. HEENT: Head normocephalic, atraumatic. Eyes: Extraocular muscles are intact. Pupils are equal, round and reactive to light and accommodation. Ears: No lesions. Nose appeared normal. Throat: No exudate or erythema. NECK: Supple. No JVD, no carotid bruit. No lymphadenopathy or thyromegaly. LUNGS: Decreased breath sounds but clear to auscultation. Percussion note normal. Chest symmetrical. HEART: S1, S2, no S3. No murmurs. No cyanosis or clubbing. No ascites. Pulses: Dorsalis pedis and posterior tibial pulses +1 to +2 bilaterally. ABDOMEN: Soft. Nontender. Bowel sounds active. No CVA tenderness. No mass felt. EXTREMITIES: No edema. Full range of motion of all extremities, equal. NEUROLOGIC: No focal deficit. Cranial nerves II through XII are grossly intact. No headache. No double vision. SKIN: Not dry. Intact. Turgor - normal. LYMPHATIC: No palpable lymph nodes/no lymphedema. MUSCULOSKELETAL: Normal joints with no swelling. Muscle tone is normal. LABS: EKG sinus rhythm with LVH. The patient's urine showed proteus Mirabilis. The patient's CT of the ankle showed ligamentous damage. PLAN: 1. Start Cipro 500mg BID for 7 days 2. Ortho referral to be done, talked to the solution manager 3. Advised to get air cast for the effected limb. 4. CHF symptoms seems to have resolved for now 5. The patient may need physical therapy because she is unable to ambulate 6. Swing bed transfer maybe tomorrow. TIME SPENT: More than 35 minutes. Plan and coordination of the patient's care discussed in the presence of nurse. BING
[2022-12-27 13:44] VITALS: RESP 20; TEMP 97.3
--- NOTE | 2022-12-27 13:49 | ECHO2D ---
Date of Exam: 12/27/2022 Ordering Physician: DR. SEAN GROVER Room #: 120 Reason for Echo: SOB, HTN, H/O AFIB, CHF, CKD, DYSLIPIDEMIA M-Mode Normal Adult Results LV Dimensions Normal Adult Results AoV Opening excursions >1.6 >1.6 LVEDD-base- 3.5-5.8 5.5 Ao root dimensions 2.0-3.7 3.0 LVESD-base- 3.1-4.6 L. Atrium dimensions 1.9-3.8 5.5 Post. Wall thickness 0.8-1.1 1.3 IV septum (thickness) 0.7-1.2 1.3 Post. Wall excursion 0.72-1.3 NORMAL Septal motion NORMAL Systolic motion R. Ventricular cavity 1.5-2.0 NORMAL LVEF 60% 62% Paradoxical septal wall motion NORMAL 2-D : 2-D M Mode Echocardiogram was performed using apical four chamber and left parasternal long and short axis views. Mitral, tricuspid and aortic valves appear to be normal. Contractility of the left ventricle seems to be normal, so is the cavity size. ENLARGED ATRIAL CAVITY SIZE. Aortic root appears to be normal. There is no pericardial effusion. There is no thrombus noted in the left ventricle or left atrial cavity. COLOR FLOW: MILD TO MODERATE AORTIC REGURGITATION M-MODE: MV: NORMAL AV: MILDLY CALCIFIC AORTIC VALVE LEAFLETS TV: NORMAL PV: NORMAL CHAMBER SIZE: ENLARGED LEFT ATRIAL CAVITY WALL MOTION: NORMAL PERICARDIUM: NORMAL INTERPRETATION: 1. LEFT VENTRICLE HYPERTROPHY WITH ENLARGED LEFT ATRIAL CAVITY 2. NORMAL LEFT VENTRICLE SIZE AND LEFT VENTRICLE CONTRACTILITY 3. 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
[2022-12-27 14:01] VITALS: BP 135/62; PULSE 67
--- NOTE | 2023-01-02 10:34 | PN ---
DATE OF SERVICE: 12/27/22 SUBJECTIVE: The patient is doing well, CHF seems to be under control. Doesn't have any PND or orthopnea.She is not able to walk. Needs assistance in ambulation. The patient is going to need physical therapy. Leg edema has practically subsided. REVIEW OF SYSTEMS: CONSTITUTIONAL: No night sweats. No fatigue, malaise, lethargy. No fever or chills. HEENT: Eyes: No visual changes. No eye pain. No eye discharge. ENT: No runny nose. No epistaxis. No sinus pain. No sore throat. No odynophagia. No congestion. RESPIRATORY: No cough, no congestion. No hemoptysis. No shortness of breath. CARDIOVASCULAR: No angina symptoms. No CHF symptoms. No atypical chest pain for CAD. No palpitations. No PND. No orthopnea. GASTROINTESTINAL: No abdominal pain. No nausea or vomiting. No diarrhea or constipation. No hematemesis. No hematochezia. GENITOURINARY: No urgency. No frequency. No dysuria. No hematuria. No obstructive symptoms. No discharge. No pain. No significant abnormal bleeding. MUSCULOSKELETAL: No musculoskeletal pain; no joint swelling. Mild pain in the left ankle area. Mildly swollen. Still unable to ambulate the left lower extremity and right lower extremity are weak. NEUROLOGICAL: No headache. No neck pain. No syncope. No seizures. No dizziness. PSYCHIATRIC: Not anxious. No depression. No suicidal thoughts. No homicidal thoughts. SKIN: No rash. No lesions. No wounds. ENDOCRINE: No unexplained weight loss. No weight gain. HEMATOLOGIC/LYMPHATIC: No anemia. No purpura. No petechiae. No prolonged or excessive bleeding. No palpable lymph nodes. PHYSICAL EXAMINATION: GENERAL: The patient is oriented to time, place and person. VITAL SIGNS: Temperature 98.4, pulse 70, respiratory rate 15, blood pressure 146/70 and pulse ox 95% on room air. HEENT: Head normocephalic, atraumatic. Eyes: Extraocular muscles are intact. Pupils are equal, round and reactive to light and accommodation. Ears: No lesions. Nose appeared normal. Throat: No exudate or erythema. NECK: Supple. No JVD, no carotid bruit. No lymphadenopathy or thyromegaly. LUNGS:Decreased breath sounds but clear. Percussion note normal. Chest symmetrical. HEART: S1, S2, no S3. No murmurs. No cyanosis or clubbing. No ascites. Pulses: Dorsalis pedis and posterior tibial pulses +1 to +2 bilaterally. ABDOMEN: Soft. Nontender. Bowel sounds active. No CVA tenderness. No mass felt. EXTREMITIES: No edema. Full range of motion of all extremities, equal. NEUROLOGIC: No focal deficit. Cranial nerves II through XII are grossly intact. No headache. No double vision. SKIN: Not dry. Intact. Turgor - normal. LYMPHATIC: No palpable lymph nodes/no lymphedema. MUSCULOSKELETAL: Normal joints with no swelling. Muscle tone is normal. ASSESSMENT: 1. CHF seems to have resolved 2. Atrial fibrillation with history of cardioversion 3. Status post fall with left ankle sprain, some damage to the fibular ligament on the left ankle 4. Chronic kidney disease 5. Hypertension 6. Morbid obesity PLAN: 1. She is unable to ambulate, needs helps and is going to been physical therapy. She is going to need PT/OT. She was seen by swing bed committee including Open Source Developer and Physical therapist who are in agreement for swing bed admission. TIME SPENT: More than 35 minutes. Plan and coordination of the patient's care discussed in the presence of nurse. BING
== END 2022-12-27 14:07 | disposition swing bed (61) | DRG 556 ==
LOC: MEDSURG B 12:00 → EDSTATUS 12-27 14:11
PROVIDERS: ADMIT Internal Medicine; ATTEND Internal Medicine